=== PATIENT | female | born 1985 | race Caucasian/White ===

== ENCOUNTER → 2016-10-20 | Outpatient (CLI) | payer OTHER ==
[~2016-10-20] MED LIST: BCPILLS PO; BUPR100T8 PO; CERT200K SC; HYOS1TAB PO; MESA10002 PR
--- NOTE | 2016-10-20 13:40 | DIAGNOSTIC IMAGING REPORT ---
CHEST 2 VIEWS ROUTINE HISTORY: Cough. COMPARISON: Chest 02/13/2015. FINDINGS: The lungs are clear. Cardiac silhouette is normal in size. No pleural effusions. No pneumothorax. IMPRESSION: No acute process. Electronically signed by: Vishal Campo M.D. 10/20/2016 1:38 PM Dictated Date/Time: 10/20/2016 1:37 PM
== END | disposition home or self-care (01) ==
LOC: C.RAD 13:11
PROVIDERS: ATTEND Family Medicine
DX: R05 Cough (principal)

== ENCOUNTER → 2017-05-12 | Outpatient (CLI) | payer OTHER | END | disposition home or self-care (01) | LOC: C.PAPS 13:59 | PROVIDERS: ATTEND Physician Assistant | DX: Z01.419 Encounter for gynecological examination (general) (routine) without abnormal findings (principal) ==

== ENCOUNTER 2019-05-09 08:18 | Inpatient (IN) ==
[2019-05-09] MEDS ORDERED: HYDROmorphone INJ 0.5 MG/0.5 ML SYR IV STA ×2 (09:23→11:54)
[2019-05-09] MEDS ORDERED: ONDANSETRON INJ 2 MG/ML 2 ML VIAL IV STA (09:23)
[2019-05-09] MEDS ORDERED: methylPREDNISolone 125 MG/2 ML VIAL IV STA (09:23)
[2019-05-09] MEDS ORDERED: SODIUM CHLORIDE 0.9% 1000ML 1,000 ML IV SCH (09:30)
[2019-05-09 09:52] LABS: Appearance Urine Cloudy (Clear); Bacteria Urine Automated 2+ (Negative); Bilirubin Urine Negative (Negative); Blood Urine 2+ (Negative); Color Urine Dark Yellow; Epithelial Cell Urine Auto >30 /lpf (0-5); Glucose Urine UA Negative (Negative); Ketones Urine Trace (Negative); Leukocyte Esterase Urine Negative (Negative); Nitrite Urine Negative (Negative); Protein Urine Trace (Negative); Specific Gravity Urine 1.024 (1.000-1.030); Urobilinogen Urine Negative (Negative); pH Urine 6.5 (4.5-7.5)
[2019-05-09 09:56] LABS: Basophils # (auto) 0.03 K/uL (0-0.2); Basophils % (auto) 0.2 %; Eosinophils # (auto) 0.11 K/uL (0-0.5); Eosinophils % (auto) 0.8 %; Hematocrit (blood only) 36.1 % (37-47); Hemoglobin 11.9 g/dL (12.0-16.0); Immature Granulocytes # (auto) 0.17 K/uL (0.00-0.02); Immature Granulocytes % (auto) 1.3 %; Lymphocytes # (auto) 2.41 K/uL (1.2-3.4); Lymphocytes % (auto) 18.1 %; Mean Corpuscular Hemoglobin 29.2 pg (25-34); Mean Corpuscular Volume 88.5 fL (80-100); Mean Platelet Volume 9.3 fL (7.4-10.4); Monocytes # (auto) 1.71 K/uL (0.11-0.59); Monocytes % (auto) 12.8 %; Neutrophils # (auto) 8.88 K/uL (1.4-6.5); Neutrophils % (auto) 66.8 %; Platelet Count 333 K/uL (130-400); RDW Coefficient of Variation 13.6 % (11.5-14.5); Red Blood Count 4.08 M/uL (4.2-5.4); White Blood Count 13.31 K/uL (4.8-10.8)
[2019-05-09 10:01] LABS: Mucus Urine Present (None Prsent)
[2019-05-09 10:12] LABS: Albumin Level 2.7 gm/dl (3.4-5.0); BUN Creatinine Ratio 9.4 (10-20); Calcium 8.3 mg/dl (8.5-10.1); Creatinine Clr Calc Pharmacy 108.5 ml/min; Est GFR (African American) 117.6; Est GFR (Non-African American) 101.4; Potassium 3.2 mmol/L (3.5-5.1)
[2019-05-09 10:15] LABS: Albumin Globulin Ratio 0.7 (0.9-2); Bilirubin,Total 0.4 mg/dl (0.2-1); Globulin 3.9 gm/dl (2.5-4.0); Total Protein 6.6 gm/dl (6.4-8.2)
--- NOTE | 2019-05-09 11:01 | Emergency Department Note ---
ED Visit Note This patient was seen in concert with Dr. Valenzuela and we discussed and agreed upon the history, physical, assessment and plan. See attending's note for details. . Resident Activity Tracking Resident Involvement: Resident Care Provided Care Provided: Adult ED
[2019-05-09] MEDS ORDERED: POTASSIUM CHLORIDE 20 MEQ/15 ML UDC PO STA (11:13)
[2019-05-09] MEDS ORDERED: SODIUM CHLORIDE 0.9% 1000ML 1,000 ML IV ONE (12:30)
--- NOTE | 2019-05-09 14:32 | Emergency Department Note ---
Entered by Paco Chavez acting as a scribe for History of Present Illness General Chief complaint: Diarrhea Stated complaint: CROHN'S FLARE Source: patient History of Present Illness Provider complaint: Abdominal pain Onset (ago): day(s) (Several days) Location: abdomen Severity: similar to prior episodes Pain Consistency: + intermittent Maximum Pain Intensity: 8 Current Pain Intensity: 8 Quality: + other (Crampy) Relieved By: + none Exacerbated By: + none Associated symptoms: + denies other symptoms (Urinary symptoms) and + other (Hematochezia, diarrhea); no fever/chills and no nausea/vomiting The patient is a 34 year old female who presents to the Emergency Room with complaints of intermittent, crampy, generalized abdominal pain that has been ongoing for the past several days. The patient rates the pain as an 8/10 and notes nothing makes it better or worse. The patient has a history of Crohn's dis ease and states this feels similar to her past flare ups. The patient adds that for the past couple of days she has had bloody diarrhea, having about 6-8 bowel movements per day. The patient follows with Dr. Tabor for her Crohn's and she saw him last week for enemas but that did not help her symptoms. The patient states she saw him again yesterday and received prednisone but was told it may be too late and her flare might have already started. She currently takes Stelara for her Crohn's disease. The patient denies any nausea, vomiting, fevers, or chills. She also mentioned that in October she had an upper and lower endoscopies done that showed she was in remission. Home Medications Home Medications Medication Instructions Recorded Confirmed Type lorazepam 1 mg tablet 1 mg PO HS PRN #30 tab 03/22/19 05/09/19 History ustekinumab 90 mg/mL subcutaneous 0 mg SUBCUT .q 8 weeks ml 03/22/19 05/09/19 History syringe dicyclomine 10 mg PO TID PRN 05/09/19 05/09/19 History hydrocortisone-pramoxine 1 applic [place] Q12H 05/09/19 05/09/19 History [Proctofoam HC] levonorgestrel-ethinyl estrad 1 tab PO DAILY 05/09/19 05/09/19 History [Ruby (28)] prednisone 40 mg PO DAILY 05/09/19 05/09/19 History Allergies Allergy/AdvReac Type Severity Reaction Status Date / Time No Known Allergies Allergy Mild Verified 05/09/19 10:34 Past Med/Surg History Medical History Crohns disease (Chronic) IBD (inflammatory bowel disease) (Chronic) Celiac disease Surgical History History of colonoscopy (Chronic) Family History Grandfather (Paternal) Coronary heart disease Social History Preferred Language: Mohawk Communication Ability: Effective Beliefs That Will Affect Care: None Current Living Situation: Significant Other Other Information That Helps Us Care for You: No Feels Safe at Home: Yes Safety Concerns: Feels Safe At This Time Smoking Status: Never smoker Hx Alcohol Use: Yes Alcohol Intake Frequency: Rarely Hx Substance Use: No Review of Systems See HPI for pertinent positives & negatives. and A total of 10 systems reviewed and were otherwise negative Physical Exam Vital Signs Vital Signs - 24 hr 05/09/19 08:27 05/09/19 09:26 05/09/19 10:56 Temperature 37.1 C Temperature Source Oral Sepsis Recent Fever Within 48 Hours No Sepsis New/Unexplained Change in Mental Status No Sepsis Action Taken by Nursing No Action Required Pulse Rate 109 H 99 H Pulse Rate [Right Finger] 94 H Pulse Rhythm Regular Pulse Strength Normal Respiratory Rate 20 20 12 Respiratory Effort / Characteristics Non-Labored Spontaneous Non-Labored Respiratory Depth Normal Normal Respiratory Pattern Regular Blood Pressure 119/77 Blood Pressure [Right Arm] 118/79 Blood Pressure Mean 91 Blood Pressure Mean [Right Arm] 92 Blood Pressure Position Sitting Pulse Oximetry 97 98 98 Oxygen Delivery Method Room Air Room Air Room Air 05/09/19 12:02 05/09/19 13:41 05/09/19 13:45 Temperature Temperature Source Sepsis Recent Fever Within 48 Hours Sepsis New/Unexplained Change in Mental Status Sepsis Action Taken by Nursing Pulse Rate Pulse Rate [Right Finger] 97 H 94 H Pulse Rhythm Pulse Strength Respiratory Rate 20 20 Respiratory Effort / Characteristics Non-Labored Non-Labored Respiratory Depth Normal Normal Respiratory Pattern Blood Pressure Blood Pressure [Right Arm] 111/75 133/77 Blood Pressure Mean Blood Pressure Mean [Right Arm] 87 95 Blood Pressure Position Pulse Oximetry 97 98 Oxygen Delivery Method Room Air Room Air Vital signs reviewed. General: Well-appearing 34 year old female, in no significant distress. HEENT: No scleral icterus, PERRLA, neck supple. Atraumatic. Cardiovascular: Regular rate and rhythm, no extra sounds. Pulmonary: Clear to auscultation bilaterally, normal work of breathing. Abdomen: Soft, minimal diffuse tenderness with no rebounding or guarding, nondistended, positive bowel sounds. Musculoskeletal: Atraumatic, no peripheral edema. Neurologic: Patient awake alert and oriented x 3 Skin: Warm, dry, no rash Course 0903: Past medical records reviewed. The patient was evaluated in room A11B by the resident Chey Christianson, and a complete history and physical examination were performed. I then performed my own assessment. 1140: I reevaluated the patient and her condition has not changed. 1232: I spoke to Felix MATHIS about the patient's case. She recommends having the patient stay in the hospital. 1318: I spoke to Gela Meehan PAC under Dr. Dr. Javy Cannon about the patient's case. They are going to accept the patient for further evaluation. Consultations Consultation #1: I spoke to Felix MATHIS about the patient's case. She recommends having the patient stay in the hospital. Time: 12:32 Consultation #2: I spoke to Gela Meehan PAC under Dr. Dr. Javy Cannon about the patient's case. They are going to accept the patient for further evaluation. Time: 13:18 Administered Medications Hydromorphone HCl (Dilaudid) 0.5 mg IV Q3H PRN PRN Reason: Pain Stop: 05/23/19 21:26 Last Admin: 05/10/19 20:07 Dose: 0.5 mg Documented by: [id number] Admin: 05/10/19 14:34 Dose: 0.5 mg Documented by: [id number] Admin: 05/10/19 00:35 Dose: 0.5 mg Documented by: [id number] Admin: 05/09/19 21:35 Dose: 0.5 mg Documented by: [id number] Methylprednisolone 20 mg/ (Syringe) 0.32 mls @ 1.5 mls/min IV Q8H DUANE Stop: 06/08/19 15:59 Last Admin: 05/10/19 15:48 Dose: 1.5 mls/min Documented by: [id number] Admin: 05/10/19 08:13 Dose: 1.5 mls/min Documented by: [id number] Admin: 05/09/19 23:45 Dose: 1.5 mls/min Documented by: [id number] Admin: 05/09/19 16:24 Dose: 1.5 mls/min Documented by: [id number] Lillow: Non- Formulary Patient's Own Med 1 ea PO DAILY@2100 [facility] Stop: 06/08/19 20:59 Last Admin: 05/10/19 20:08 Dose: 1 ea Documented by: [id number] Admin: 05/09/19 21:26 Dose: 1 ea Documented by: [id number] Discontinued Medications Hydromorphone HCl (Dilaudid) 0.5 mg IV NOW STA Stop: 05/09/19 09:24 Last Admin: 05/09/19 09:41 Dose: 0.5 mg Documented by: [id number] Hydromorphone HCl (Dilaudid) 0.5 mg IV NOW STA Stop: 05/09/19 11:55 Last Admin: 05/09/19 11:58 Dose: 0.5 mg Documented by: [id number] Sodium Chloride (Nss 1000ml) 1,000 mls @ 999 mls/hr IV .Q1H1M DUANE Stop: 05/09/19 10:30 Last Infusion: 05/09/19 10:55 Dose: 0 mls/hr Documented by: [id number] Admin: 05/09/19 09:40 Dose: 999 mls/hr Documented by: [id number] Sodium Chloride (Nss 1000ml) 1,000 mls @ 999 mls/hr IV .Q1H1M ONE Stop: 05/09/19 13:30 Last Infusion: 05/09/19 14:53 Dose: 0 mls/hr Documented by: [id number] Admin: 05/09/19 13:40 Dose: 999 mls/hr Documented by: [id number] Potassium Chloride/Sodium Chloride (Normal Saline W/20 Meq Kcl) 20 meq in 1,000 mls @ 125 mls/hr IV .Q8H DUANE Stop: 05/10/19 15:35 Last Infusion: 05/10/19 16:15 Dose: 0 mls/hr Documented by: [id number] Admin: 05/10/19 08:39 Dose: 125 mls/hr Documented by: [id number] Infusion: 05/10/19 08:35 Dose: 125 mls/hr Documented by: [id number] Admin: 05/10/19 00:35 Dose: 125 mls/hr Documented by: [id number] Infusion: 05/10/19 00:22 Dose: 125 mls/hr Documented by: [id number] Infusion: 05/09/19 22:06 Dose: 125 mls/hr Documented by: [id number] Admin: 05/09/19 16:22 Dose: 125 mls/hr Documented by: [id number] Methylprednisolone (Solumedrol) 125 mg IV NOW STA Stop: 05/09/19 09:24 Last Admin: 05/09/19 09:40 Dose: 125 mg Documented by: [id number] Ondansetron HCl (Zofran) 4 mg IV NOW STA Stop: 05/09/19 09:24 Last Admin: 05/09/19 09:40 Dose: 4 mg Documented by: [id number] Potassium Chloride (Brooklynn Ciel Elix) 40 meq PO NOW STA Stop: 05/09/19 11:14 Last Admin: 05/09/19 11:43 Dose: 40 meq Documented by: [id number] Medical Decision Making Differential Diagnosis Differential: Viral, Bacterial, Parasitic, Iatrogenic, C-Diff, Malabsorption, Irritable Bowel Disease, IBS, Ischemic Bowel, amongst other pathologies entertained. Medical Records Attestation: I reviewed the patient's medical records. Home Medications Current Medication List: was personally reviewed by me Laboratory Data Attestation: I reviewed the patient's lab results. Result diagrams: 05/10/19 06:32 05/10/19 06:32 Lab Results 05/09/19 05/09/19 05/09/19 Range/Units 09:33 09:45 09:45 WBC 13.31 H (4.8-10.8) K/uL RBC 4.08 L (4.2-5.4) M/uL Hgb 11.9 L (12.0-16.0) g/dL Hct 36.1 L (37-47) % MCV 88.5 (80-100) fL MCH 29.2 (25-34) pg MCHC 33.0 (32-36) g/dL RDW Std Deviation 44.0 (36.4-46.3) fL RDW Coeff of Elie 13.6 (11.5-14.5) % Plt Count 333 (130-400) K/uL MPV 9.3 (7.4-10.4) fL Immature Gran % (Auto) 1.3 % Neut % (Auto) 66.8 % Lymph % (Auto) 18.1 % Pettis % (Auto) 12.8 % Eos % (Auto) 0.8 % Baso % (Auto) 0.2 % Immature Gran # (Auto) 0.17 H (0.00-0.02) K/uL Neut # (Auto) 8.88 H (1.4-6.5) K/uL Lymph # (Auto) 2.41 (1.2-3.4) K/uL Pettis # (Auto) 1.71 H (0.11-0.59) K/uL Eos # (Auto) 0.11 (0-0.5) K/uL Baso # (Auto) 0.03 (0-0.2) K/uL Sodium 140 (136-145) mmol/L Potassium 3.2 L (3.5-5.1) mmol/L Chloride 106 (98-107) mmol/L Carbon Dioxide 28 (21-32) mmol/L Anion Gap 6.0 (3-11) BUN 7 (7-18) mg/dl Creatinine 0.77 (0.6-1.2) mg/dl Est Cr Clr Drug Dosing 108.5 ml/min Est GFR ( Amer) 117.6 Est GFR (Non-Af Amer) 101.4 BUN/Creatinine Ratio 9.4 L (10-20) Glucose 81 (70-99) mg/dl Lactate (0.4-2.0) mmol/L Calcium 8.3 L (8.5-10.1) mg/dl Magnesium (1.8-2.4) mg/dl Total Bilirubin 0.4 (0.2-1) mg/dl AST 5 L (15-37) U/L ALT 16 (12-78) U/L Alkaline Phosphatase 65 (45-117) U/L Total Protein 6.6 (6.4-8.2) gm/dl Albumin 2.7 L (3.4-5.0) gm/dl Globulin 3.9 (2.5-4.0) gm/dl Albumin/Globulin Ratio 0.7 L (0.9-2) Lipase 54 L (73-393) U/L Urine Color Dark Yellow Urine Appearance Cloudy A (Clear) Urine pH 6.5 (4.5-7.5) Ur Specific [place] 1.024 (1.000-1.030) Urine Protein Trace H (Negative) Urine Glucose (UA) Negative (Negative) Urine Ketones Trace H (Negative) Urine Blood 2+ H (Negative) Urine Nitrite Negative (Negative) Urine Bilirubin Negative (Negative) Urine Urobilinogen Negative (Negative) Ur Leukocyte Esterase Negative (Negative) Urine WBC (Auto) 1-5 (0-5) /hpf Urine RBC (Auto) 10-30 H (0-4) /hpf U Hyaline Cast (Auto) 1-5 (0-5) /lpf U Epithel Cells (Auto) >30 H (0-5) /lpf Urine Bacteria (Auto) 2+ H (Negative) Ur Renal Epithelial Cell Not Reportable Urine Mucus Present A (None Prsent) 05/09/19 05/09/19 Range/Units 09:45 09:45 WBC (4.8-10.8) K/uL RBC (4.2-5.4) M/uL Hgb (12.0-16.0) g/dL Hct (37-47) % MCV (80-100) fL MCH (25-34) pg MCHC (32-36) g/dL RDW Std Deviation (36.4-46.3) fL RDW Coeff of Elie (11.5-14.5) % Plt Count (130-400) K/uL MPV (7.4-10.4) fL Immature Gran % (Auto) % Neut % (Auto) % Lymph % (Auto) % Pettis % (Auto) % Eos % (Auto) % Baso % (Auto) % Immature Gran # (Auto) (0.00-0.02) K/uL Neut # (Auto) (1.4-6.5) K/uL Lymph # (Auto) (1.2-3.4) K/uL Pettis # (Auto) (0.11-0.59) K/uL Eos # (Auto) (0-0.5) K/uL Baso # (Auto) (0-0.2) K/uL Sodium (136-145) mmol/L Potassium (3.5-5.1) mmol/L Chloride (98-107) mmol/L Carbon Dioxide (21-32) mmol/L Anion Gap (3-11) BUN (7-18) mg/dl Creatinine (0.6-1.2) mg/dl Est Cr Clr Drug Dosing ml/min Est GFR ( Amer) Est GFR (Non-Af Amer) BUN/Creatinine Ratio (10-20) Glucose (70-99) mg/dl Lactate 0.8 (0.4-2.0) mmol/L Calcium (8.5-10.1) mg/dl Magnesium 2.0 (1.8-2.4) mg/dl Total Bilirubin (0.2-1) mg/dl AST (15-37) U/L ALT (12-78) U/L Alkaline Phosphatase (45-117) U/L Total Protein (6.4-8.2) gm/dl Albumin (3.4-5.0) gm/dl Globulin (2.5-4.0) gm/dl Albumin/Globulin Ratio (0.9-2) Lipase (73-393) U/L Urine Color Urine Appearance (Clear) Urine pH (4.5-7.5) Ur Specific [place] (1.000-1.030) Urine Protein (Negative) Urine Glucose (UA) (Negative) Urine Ketones (Negative) Urine Blood (Negative) Urine Nitrite (Negative) Urine Bilirubin (Negative) Urine Urobilinogen (Negative) Ur Leukocyte Esterase (Negative) Urine WBC (Auto) (0-5) /hpf Urine RBC (Auto) (0-4) /hpf U Hyaline Cast (Auto) (0-5) /lpf U Epithel Cells (Auto) (0-5) /lpf Urine Bacteria (Auto) (Negative) Ur Renal Epithelial Cell Urine Mucus (None Prsent) Blood Pressure Blood Pressure Findings: Normal blood pressure MDM Narrative This patient was evaluated and appeared to be in no significant distress. IV access was obtained and laboratory work was drawn. Patient was placed on the director of cardiac rehabilitation and found to be in a normal sinus rhythm. Vital signs have remained stable with the exception of a mild tachycardia. Patient was hydrated with 1 L of normal saline solution but heart rate did remain somewhat elevated. Laboratory work reveals a WBC of 15.8, likely somewhat secondary to the prednisone therapy. Hemoglobin is 10.4. Patient did receive 125 mg of IV Solu- Medrol. As the abdomen is soft, no further imaging was felt to be necessary at this time. She was given p.o. potassium for repletion. I did speak with [facility], DELFINA Cardoso. Further management by the hospitalist service was recommended. Patient was updated to the findings and plan. She agrees. Impression & Plan Crohns disease Discharge Plan Visit Data *Final* Discharge Date/Time: 05/09/19 15:08 Chief Complaint: Diarrhea Stated Complaint: CROHN'S FLARE ED Provider: Dorothy Valenzuela Discharge Problem: Crohns disease Patient Disposition: Admitted As Inpatient Discharge Instructions Interventions: ED Discharge Assessment Last Done: 05/09/19 15:08 Discharge Problem: Crohns disease Qualifiers: Gastrointestinal tract location: unspecified location Digestive disease complication type: unspecified complication Qualified Code(s): K50.919 - Crohn's disease, unspecified, with unspecified complications The scribe's documentation has been prepared under my direction and personally reviewed by me in its entirety. I confirm that the note above accurately reflects all work, treatment, procedures, and medical decision making performed by me.
--- NOTE | 2019-05-09 14:35 | History & Physical Report ---
Date of Service May 09, 2019 Assessment & Plan (1) IBD (inflammatory bowel disease): (2) Bloody diarrhea: Pt with hx IBD presented with 2 weeks of abdominal cramping and increased loose stools progressing to grossly bloody stools. Trial of hydrocortisone enemas and Proctocort last week without relief. History cephalexin use x10 days in March for rash. Denies fever, chills, vomiting. In ER afebrile, P: 109 down to 97, RR: 20, BP: 119/77, 97% on room air. WBC: 13, H/H: 11.9/36. Lactate: 0.8. UA: 10-30 RBC, 2+ bacteria, >30 epithelial IBD flare versus infectious diarrhea -In ER given 2L NSS, 125mg Solumedrol IV, Zofran 4mg IV, Dilaudid total 1mg IV -C. difficile, stool cultures, Giardia pending -UA culture pending -IVF -Clear liquid diet -Solu-Medrol 20 mg 3 times daily per GI recommendations -Antiemetics prn -Continue Bentyl as needed cramping -No current abdominal pain and abdomen soft on exam, will hold on imaging at this time -Hold Stelara (patient receives to 8 weeks; scheduled dose was to be 03/23/2019 however was withheld secondary to rash, last dose 04/06/2019) -GI consult -CBC, BMP in a.m. (3) Hypokalemia: K: 3.2 Probable secondary to diarrhea and decreased oral intake -In ER given 40meq KCl po -NSS + KCl -Monitor electrolytes DVT Prophylaxis -Low risk, Ambulate Follows with Ashlee Suggs PA-C for routine care Pt was seen and care coordinated with Dr Palafox. See addendum History of Present Illness Chief Complaint: Bloody diarrhea Primary Care Provider: Ashlee Suggs PA-C Pt is 34 y/o F with PMH IBD presented to ER with c/o bloody diarrhea. Pt 2 weeks ago started with some mild abdominal cramping and noticed started 2-3 loose stools a day. She reports on 04/29/19 started hydrocortisone enemas and thought was getting better with decreased amount of BM's. Stopped enemas as felt like was getting better than had increased amount of loose stools. Tried Proctofoam 4 days ago but felt like was not helping as did not feel like applicator was appropriate and discontinued that 2-3 days ago. Last week started with red bloody diarrhea and past several days with diffuse red blood. Has been having approx 6-9 episodes bloody BM's a day. Was started on prednisone 40mg daily, took first dose yesterday on 05/08/19. Taking Bentyl with some relief of abdominal cramping. Decreased oral intake past several days. She reports in March had rash to torso that was evaluated by dermatology and determined to be staph from wound culture and was treated with cephalexin for 10 days. Pt reports rash resolved. States that her Stelera was delayed secondary to rash (receives every 8 weeks). She was originally scheduled to receive Stelera on 03/23/19, however had dose on 04/06/19. Denies any other recent changes in medications. Pt thinks her last IBD flare was in 2014 and reports hasn't needed oral steroids since then. Colonoscopy in 12/2018: No evidence of active colitis. Changes c/w chronic colitis. LMP 05/03/19-/05/07/19. Denies fever/chills, diaphoresis, vomiting, MARCIAL, dizziness, syncope, vision changes, neck pain, CP, SOB, orthopnea, palpitations, cough, sore throat, choking, otalgia, rhinorrhea, paresthesias, weakness, extremity edema, ohter rashes, dysuria, hematuria, urinary frequency. Denies recent ETOH use. Denies recent travel, ill contacts. Allergies Allergy/AdvReac Type Severity Reaction Status Date / Time No Known Allergies Allergy Mild Verified 05/09/19 10:34 Home Medications Home Medications Medication Instructions Recorded Confirmed Type lorazepam 1 mg tablet 1 mg PO HS PRN #30 tab 03/22/19 05/09/19 History ustekinumab 90 mg/mL subcutaneous 0 mg SUBCUT .q 8 weeks ml 03/22/19 05/09/19 History syringe dicyclomine 10 mg PO TID PRN 05/09/19 05/09/19 History hydrocortisone-pramoxine 1 applic [place] Q12H 05/09/19 05/09/19 History [Proctofoam HC] levonorgestrel-ethinyl estrad 1 tab PO DAILY 05/09/19 05/09/19 History [Ruby (28)] prednisone 40 mg PO DAILY 05/09/19 05/09/19 History Past Med/Surg History Medical History Crohns disease (Chronic) IBD (inflammatory bowel disease) (Chronic) Celiac disease Surgical History History of colonoscopy (Chronic) Family History Grandfather (Paternal) Coronary heart disease Social History Preferred Language: Honduran Communication Ability: Effective Beliefs That Will Affect Care: None Current Living Situation: Significant Other Other Information That Helps Us Care for You: No Feels Safe at Home: Yes Safety Concerns: Feels Safe At This Time Smoking Status: Never smoker Hx Alcohol Use: Yes Alcohol Intake Frequency: Rarely Hx Substance Use: No Review of Systems Review of Systems: All systems reviewed & are unremarkable except as noted in HPI & below Physical Exam Physical Exam: General: no distress, WDWN Head: normocephalic, atraumatic Eyes: PERRL, EOM's intact, conjunctiva non-injected, anicteric ENT: normal inspection external ears, nose, mucous membranes dry Neck: supple, trachea midline Lungs: clear, no respiratory distress, no wheezing/rhonchi/rales CV: RRR, no murmur, no pretibial edema Abd: normal BS, soft, non-tender to palpation Ext: no cyanosis, no calf tenderness Neuro: A&O x 3, no focal deficits noted, normal affect Skin: warm, dry Results & Data Vital Signs (Past 12 Hours) Vital Signs Temp Pulse Pulse Resp BP BP Pulse Ox 05/09/19 13:41 94 H 20 133/77 98 05/09/19 12:02 97 H 20 111/75 97 05/09/19 10:56 94 H 12 118/79 98 05/09/19 09:26 99 H 20 98 05/09/19 08:27 37.1 C 109 H 20 119/77 97 Laboratory Results Short CBC 05/09/19 Range/Units 09:45 WBC 13.31 H (4.8-10.8) K/uL Hgb 11.9 L (12.0-16.0) g/dL Hct 36.1 L (37-47) % Plt Count 333 (130-400) K/uL BMP 05/09/19 09:45 Sodium 140 Potassium 3.2 L Chloride 106 Carbon Dioxide 28 BUN 7 Creatinine 0.77 Glucose 81 Calcium 8.3 L Liver Function 05/09/19 Range/Units 09:45 Total Bilirubin 0.4 (0.2-1) mg/dl AST 5 L (15-37) U/L ALT 16 (12-78) U/L Alkaline Phosphatase 65 (45-117) U/L Albumin 2.7 L (3.4-5.0) gm/dl Urine 05/09/19 Range/Units 09:33 Urine Color Dark Yellow Urine Appearance Cloudy A (Clear) Urine pH 6.5 (4.5-7.5) Ur Specific [place] 1.024 (1.000-1.030) Urine Protein Trace H (Negative) Urine Glucose (UA) Negative (Negative) Supervising Physician Co-Signing Physician Notes I have seen and examined the patient and have discussed the case with the provider above. I agree with the assessment and plan as stated. Unremarkable physical exam with nontender abdomen. Hemodynamically stable. Last BM reported to be 12 hours ago. H/H stable since initial draw in ER. Moderate to severe Chron's disease requiring steroids. Started Solumedrol. Hold Stelara. Consult GI for further recs. Liquid diet with advancement after seen by GI in am. The patient is already feeling better, which may reflect the effect of the prednisone yesterday that she started while at home or the solumedrol she was given in the last several hours vs pain medication. DO Javy
[2019-05-09] MEDS ORDERED: ACETAMINOPHEN 325 MG TAB PO PRN (15:36)
[2019-05-09] MEDS ORDERED: ONDANSETRON INJ 2 MG/ML 2 ML VIAL IV PRN (15:36)
[2019-05-09] MEDS ORDERED: LORazepam 1 MG TAB PO PRN (15:36)
[2019-05-09] MEDS ORDERED: MoRPHine SULFATE 4 MG/ML 1 ML CARP\\VIAL IV PRN (15:36)
[2019-05-09] MEDS: NSS + 20MEQ KCL 20 MEQ/1,000 ML BAG IV SCH (16:22)
[2019-05-09] MEDS: methylPREDNISolone 20 MG in SYRINGE 0 ML IV SCH ×2 (16:24→23:45)
[2019-05-09 19:25] LABS: Hematocrit (blood only) 36.4 % (37-47); Hemoglobin 11.8 g/dL (12.0-16.0)
[2019-05-09 21:20] LABS: Pregnancy Test, Urine Negative (Negative)
[2019-05-09] MEDS: [UNRECOGNIZED DRUG - OTHER] PO SCH (21:26)
[2019-05-09] MEDS: HYDROmorphone INJ 0.5 MG/0.5 ML SYR IV PRN (21:35)
[2019-05-10] MEDS: HYDROmorphone INJ 0.5 MG/0.5 ML SYR IV PRN ×3 (00:35→20:07)
[2019-05-10] MEDS: NSS + 20MEQ KCL 20 MEQ/1,000 ML BAG IV SCH ×2 (00:35→08:39)
[2019-05-10 06:55] LABS: Basophils # (auto) 0.02 K/uL (0-0.2); Basophils % (auto) 0.1 %; Hematocrit (blood only) 32.2 % (37-47); Hemoglobin 10.4 g/dL (12.0-16.0); Immature Granulocytes # (auto) 0.13 K/uL (0.00-0.02); Immature Granulocytes % (auto) 0.8 %; Lymphocytes # (auto) 1.57 K/uL (1.2-3.4); Lymphocytes % (auto) 9.9 %; Mean Corpuscular Hemoglobin 28.7 pg (25-34); Mean Corpuscular Hgb Conc 32.3 g/dL (32-36); Mean Platelet Volume 9.1 fL (7.4-10.4); Monocytes # (auto) 1.66 K/uL (0.11-0.59); Monocytes % (auto) 10.5 %; Neutrophils # (auto) 12.42 K/uL (1.4-6.5); Neutrophils % (auto) 78.7 %; Platelet Count 327 K/uL (130-400); RDW Coefficient of Variation 13.6 % (11.5-14.5); RDW Standard Deviation 44.4 fL (36.4-46.3); Red Blood Count 3.62 M/uL (4.2-5.4)
[2019-05-10 07:34] LABS: BUN Creatinine Ratio 9.2 (10-20); Calcium 8.2 mg/dl (8.5-10.1); Creatinine Clr Calc Pharmacy 126.6 ml/min; Est GFR (African American) 134.5; Est GFR (Non-African American) 116.1; Magnesium 1.9 mg/dl (1.8-2.4); Potassium 4.1 mmol/L (3.5-5.1)
[2019-05-10] MEDS: methylPREDNISolone 20 MG in SYRINGE 0 ML IV SCH ×3 (08:13→23:46)
--- NOTE | 2019-05-10 10:44 | Gastrointestinal Consultation ---
Date of Consultation May 10, 2019 Assessment & Plan (1) Crohns disease: 34 year old female with celiac, Crohn's on Stelara who presents for failed outpatient management of suspected IBD flare w/ up to 10 bloody bowel movements daily. She was started on PO prednisone Wednesday after negative stool for c.diff. On arrival to the ED repeat stool studies were sent and negative to date. She was started on IV methylpred and a clear liquid diet and notes improvement of her symptoms She is afebrile, non-toxic on exam w/ stable vital signs. Her last BM was last evening. - Would continue gluten free clear liquid diet today - Consider advancement to gluten free low residue for dinner pending her symptoms - Would continue IV methylpred 20 mg TID today - Will need transition to PO steroid taper at discharge - Prednisone 40 mg daily x 2 weeks decreasing by 5 mg per week - Can trial Bentyl 10 mg three times daily if needed - Antiemetics PRN - Would limit narcotic analgesia Thank you for allowing us to participate in the care of this patient. Please call with any acute changes, questions or concerns. Please see addendum below with additional recommendation from my supervising physician. Present on Admission?: Yes (2) Bloody diarrhea: Present on Admission?: Yes Supervising Physician Co-Signing Physician Notes Late entry: Patient was seen and examined on 05/10 with DELFINA Forde whose note reflects our findings and plan. History of Present Illness Reason for Consultation: crohns Requesting Physician: Javy Attending Physician: Evon Palafox, History of Present Illness 34 year old female with history of Crohn's on Stelara, celiac disease on gluten free diet who is admitted through the ED for bloody diarrhea - GI asked to evaluate. She had been started on PO prednisone on Wednesday after she noted increased in frequency, blood in stools. Stool for c.diff was negative. On ad , stools were resubmitted c.diff negative, culture negative to date but pending. She was started on IV lfuids, IV steroids (methylpred 20 q8h) and a clear liquid diet. She notes today, she is feeling improved. Last BM was last evening. This AM passing gas but no stool. No abdominal pain. No nausea, vomiting. Tolerating liquids. c diff negative culture negative but pending EGD 2019: LA Grade A (one or more mucosal breaks less than 5 mm, not extending between tops of 2 mucosal folds) esophagitis with no bleeding was found. The entire examined stomach was normal. Biopsies were taken with a cold forceps for histology. Patchy mildly erythematous mucosa was found in the duodenal bulb.The exam of the duodenum was otherwise normal, without evidence of active celiac sprue. Biopsies taken throughout the duodenum. Colonoscopy 2019: No evidence of active colitis. Changes c/w chronic colitis Allergies Allergy/AdvReac Type Severity Reaction Status Date / Time No Known Allergies Allergy Mild Verified 05/09/19 10:34 Home Medications Home Medications Medication Instructions Recorded Confirmed Type lorazepam 1 mg tablet 1 mg PO HS PRN #30 tab 03/22/19 05/09/19 History ustekinumab 90 mg/mL subcutaneous 0 mg SUBCUT .q 8 weeks ml 03/22/19 05/09/19 History syringe dicyclomine 10 mg PO TID PRN 05/09/19 05/09/19 History hydrocortisone-pramoxine 1 applic FL Q12H 05/09/19 05/09/19 History [Proctofoam HC] levonorgestrel-ethinyl estrad 1 tab PO DAILY 05/09/19 05/09/19 History [Lillow (28)] prednisone 40 mg PO DAILY 05/09/19 05/09/19 History Patient History Medical History Crohns disease (Chronic) IBD (inflammatory bowel disease) (Chronic) Celiac disease Surgical History History of colonoscopy (Chronic) Family History Grandfather (Paternal) Coronary heart disease Social History Preferred Language: Turkish Communication Ability: Effective Beliefs That Will Affect Care: None Current Living Situation: Significant Other Other Information That Helps Us Care for You: No Feels Safe at Home: Yes Safety Concerns: Feels Safe At This Time Smoking Status: Never smoker Hx Alcohol Use: Yes Alcohol Intake Frequency: Rarely Hx Substance Use: No Review of Systems Constitutional: no fever, no chills and no fatigue Respiratory: no cough and no dyspnea Cardiovascular: no chest pain and no radiating jaw, neck or arm pain Gastrointestinal: + change in bowel habits, + change in stools, + diarrhea/loose stools, + constant urge to pass stools and + blood in stools; no abdominal pain, no bloating, no heartburn, no nausea, no coffee ground emesis, no hematemesis, no dysphagia, no cramping, no constipation, no fecal incontinence and no melena Physical Exam Constitutional: WD/WN, vitals as above well developed Neck: trachea midline Respiratory: normal respiratory effort, lungs clear to auscultation Cardiovascular: RRR, no murmur, no edema Gastrointestinal (Abdomen): normal bowel sounds, soft, nontender, no hepatosplenomegaly Skin: no rashes, warm and dry Results & Data Vital Signs (Past 12 Hours) Vital Signs Temp Pulse Resp BP Pulse Ox 05/10/19 07:10 37.0 C 80 18 115/75 97 05/09/19 22:52 36.9 C 81 16 112/72 98 (1) Crohns disease Digestive disease complication type: unspecified complication Gastrointestinal tract location: unspecified location Qualified Code(s): K50.919 - Crohn's disease, unspecified, with unspecified complications
--- NOTE | 2019-05-10 12:07 | Hospitalist Progress Note ---
Date of Service May 10, 2019 Assessment & Plan (1) Crohns disease: Moderate to severe active Crohn's disease with multiple episodes of liquid bloody stools over the past week. She is improving on steroids. Continue 20 mg IV every 8. Appreciate GI recommendations. Holding Stelara at this time. Continue supportive care. (2) Acute blood loss anemia: Secondary to GI bleeding. This is improving, she is hemodynamically stable. No indication for transfusion at this time. (3) DVT prophylaxis: DVT prophylaxis contraindicated in setting of blood loss anemia. SCDs/ambulation Full code Disposition-pending ability to tolerate solid food without pain and GI clearance. Evon Palafox DO [facility] Hospitalist Subjective 34-year-old female with moderate to severe active Crohn's disease. Since admission and Solu-Medrol she has been doing fairly well. She did well last night up until having clear liquids suddenly developed severe pain a couple hours later. She also continued to have bloody bowel movements but feels the blood is decreasing in amount. She has not yet had pain after having clear liquids for breakfast this morning. GI is seeing her and considering advanced later today. She denies any fevers or chills or other infectious symptoms. Review of Systems Review of Systems: All systems reviewed & are unremarkable except as noted in HPI & below Physical Exam Physical Exam: CONSTITUTIONAL: WNWD, vitals as above, generally well- appearing EYES: normal conjunctivae, no scleral icterus ENT: MMM RESPIRATORY: clear to auscultation bilaterally, no crackles, rales or wheezes, normal respiratory effort CARDIOVASCULAR: regular rate and rhythm, S1 and 2 heard without murmurs, gallops or rubs, no JVD, no peripheral edema GASTROINTESTINAL: normal bowel sounds, soft, nontender, nondistended MUSCULOSKELETAL: strength 5/5 throughout, head is normocephalic and atraumatic SKIN: warm and dry NEUROLOGIC: CN 2-12 grossly intact, no sensory deficit, normal cognition, normal speech, no gross focal deficits. PSYCHIATRIC: alert cooperative and oriented to person, place and time. Results & Data Vital Signs (Past 12 Hours) Vital Signs Temp Pulse Resp BP Pulse Ox 05/10/19 07:10 37.0 C 80 18 115/75 97 Laboratory Results Short CBC 05/09/19 05/10/19 Range/Units 19:09 06:32 WBC 15.80 H (4.8-10.8) K/uL Hgb 11.8 L 10.4 L (12.0-16.0) g/dL Hct 36.4 L 32.2 L (37-47) % Plt Count 327 (130-400) K/uL [facility] 05/10/19 06:32 Sodium 139 Potassium 4.1 D Chloride 109 H Carbon Dioxide 25 BUN 6 L Creatinine 0.66 Glucose 117 H Calcium 8.2 L Medications Administered Current Inpatient Medications Acetaminophen (Tylenol) 650 mg PO Q4H PRN PRN Reason: pain/fever Stop: 06/08/19 15:35 Dicyclomine HCl (Bentyl) 10 mg PO TID PRN PRN Reason: Abdominal Discomfort Stop: 06/08/19 15:35 Hydromorphone HCl (Dilaudid) 0.5 mg IV Q3H PRN PRN Reason: Pain Stop: 05/23/19 21:26 Last Admin: 05/10/19 00:35 Dose: 0.5 mg Documented by: Potassium Chloride/Sodium Chloride (Normal Saline W/20 Meq Kcl) 20 meq in 1,000 mls @ 125 mls/hr IV .Q8H DUANE Stop: 05/10/19 15:35 Last Admin: 05/10/19 08:39 Dose: 125 mls/hr Documented by: Methylprednisolone 20 mg/ (Syringe) 0.32 mls @ 1.5 mls/min IV Q8H DUANE Stop: 06/08/19 15:59 Last Admin: 05/10/19 08:13 Dose: 1.5 mls/min Documented by: Lorazepam (Ativan) 1 mg PO HS PRN PRN Reason: Anxiety Stop: 06/08/19 15:35 Lillow: Non- Formulary Patient's Own Med 1 ea PO DAILY@2100 DUANE Stop: 06/08/19 20:59 Last Admin: 05/09/19 21:26 Dose: 1 ea Documented by: Ondansetron HCl (Zofran) 4 mg IV Q6H PRN PRN Reason: Nausea Stop: 06/08/19 15:35 (1) Crohns disease Digestive disease complication type: unspecified complication Gastrointestinal tract location: unspecified location Qualified Code(s): K50.919 - Crohn's disease, unspecified, with unspecified complications
[2019-05-10] MEDS: [UNRECOGNIZED DRUG - OTHER] PO SCH (20:08)
[2019-05-11] MEDS: methylPREDNISolone 20 MG in SYRINGE 0 ML IV SCH ×4 (00:16→23:54)
[2019-05-11] MEDS: HYDROmorphone INJ 0.5 MG/0.5 ML SYR IV PRN ×4 (00:38→23:58)
[2019-05-11] MEDS: DICYCLOMINE HCL 10 MG CAP PO PRN (07:57)
--- NOTE | 2019-05-11 10:32 | Gastroenterology Progress Note ---
Date of Service May 11, 2019 Assessment & Plan (1) Crohns disease: 34 year old female with celiac, Crohn's Colitis on Stelara admitted for failed OP tx of a flare. Symptoms are slowly improving (smaller area of pain, less frequent BMs, though still loose/liquid bloody). S - Would continue gluten free soft diet. - Would continue IV methylpred 20 mg TID today - Will need transition to PO steroid taper at discharge - Prednisone 40 mg daily x 2 weeks decreasing by 5 mg per week - Continue Bentyl as it is helping. - Antiemetics PRN - Would limit narcotic analgesia (2) Bloody diarrhea: Supervising Physician Co-Signing Physician Notes Late entry: Patient was seen and examine don 05/11 with Jaimee/ DELFINA Warren whose note reflects our findings and plan. Subjective Ms. Martinez is a 34 yr old female with moderate to severe active Crohn's colitis followed by Dr. Tabor. Flare symptoms of abdominal pain and blood diarrhea. Failed OP oral steroids. Admitted 05/09. Since admission and Solu-Medrol: decreased frequency of BMs (6 on Wednesday, 4 yesterday 1 thus far today). Continues with bloody, loose BMs, this mornings consisting of mostly blood. Pain now only left sided, was upper and left sided on arrival. Tolerating a low residual, soft diet without increased post prandial pain. Still, though has severe abdominal cramping 2-3 times/day with need for IV analgesics. C-diff and GI path panel (-). Review of Systems Review of Systems: ROS: Gen: Mild, fatigue and generalized weakness. No fevers Eyes: No eye redness, or pain, no recent vision changes Resp: No SOB, no cough Cardio: No palpitations/irregular beats, no chest pain : Denies pain on urination Skin: No jaundice, itching or new rashes Gastrointestinal: + change in bowel habits, + change in stools, + diarrhea/loose stools, + constant urge to pass stools and + blood in stools; no abdominal pain, no bloating, no heartburn, no nausea, no coffee ground emesis, no hematemesis, no dysphagia, no cramping, no constipation, no fecal incontinence and no melena Physical Exam Constitutional: WD/WN, vitals as above Eyes: PERRL, conjunctivae normal, anicteric sclerae ENMT: Ears: no external ear abnormality Nose: no external nose abnormality Neck: trachea midline, no thyromegaly Respiratory: normal respiratory effort, lungs clear to auscultation Cardiovascular: RRR, no murmur, no edema Gastrointestinal (Abdomen): normal bowel sounds, soft, nontender, no hepatosplenomegaly (only very minimal tenderness in the left mid and lower areas) Skin: no rashes, warm and dry Neurologic: PERRL, EOMI, accommodation nl, no face palsy, no dysarthria moves all extremities Motor/Sensory: no tremor Psychiatric: A+Ox3, euthymic affect Lymphatic: no cervical or axillary lymphadenopathy Results & Data Vital Signs (Past 12 Hours) Vital Signs Temp Pulse Resp BP Pulse Ox 05/11/19 06:57 37.1 C 87 18 116/78 96 05/10/19 23:23 36.6 C 71 18 128/80 99 (1) Crohns disease Digestive disease complication type: unspecified complication Gastrointestinal tract location: unspecified location Qualified Code(s): K50.919 - Crohn's disease, unspecified, with unspecified complications
[2019-05-11] MEDS: ACETAMINOPHEN W/CODEINE #3 1 TAB PO PRN ×2 (13:06→17:54)
--- NOTE | 2019-05-11 13:22 | Hospitalist Progress Note ---
Date of Service May 11, 2019 Assessment & Plan (1) Crohns disease: Moderate to severe active Crohn's disease with multiple episodes of liquid bloody stools over the past week. She is improving on steroids. Continue 20 mg IV every 8hrs. ESR and CRP in am as well as CBC/BMP. Expect leukocytosis in setting of steroids. Appreciate GI recommendations. Holding Stelara at this time. Continue supportive care. (2) Acute blood loss anemia: Secondary to GI bleeding. This is improving, she is hemodynamically stable. No indication for transfusion at this time. CBC in am. (3) DVT prophylaxis: DVT prophylaxis contraindicated in setting of blood loss anemia. SCDs/ambulation Full code Disposition-pending ability to tolerate solid food without pain and GI clearance. Evon Palafox DO [facility] Hospitalist Subjective 34-year-old female with active severe Crohn's disease. Patient reports approximately 6-8 bowel movements yesterday with an improvement in the amount of liquid blood seen in her stool. She does still report some pain with eating and was requiring Dilaudid IV overnight. We discussed p.o. options for pain control today to use in lieu of IV in an effort to manage her with oral medications and get her home faster. Review of systems is otherwise negative. Review of Systems Review of Systems: All systems reviewed & are unremarkable except as noted in HPI & below Physical Exam Physical Exam: CONSTITUTIONAL: WNWD, vitals as above, generally well- appearing EYES: normal conjunctivae, no scleral icterus ENT: MMM RESPIRATORY: clear to auscultation bilaterally, no crackles, rales or wheezes, normal respiratory effort CARDIOVASCULAR: regular rate and rhythm, S1 and 2 heard without murmurs, gallops or rubs, no JVD, no peripheral edema GASTROINTESTINAL: normal bowel sounds, soft, nontender, nondistended MUSCULOSKELETAL: strength 5/5 throughout, head is normocephalic and atraumatic SKIN: warm and dry NEUROLOGIC: CN 2-12 grossly intact, no sensory deficit, normal cognition, normal speech, no gross focal deficits. PSYCHIATRIC: alert cooperative and oriented to person, place and time. Results & Data Vital Signs (Past 12 Hours) Vital Signs Temp Pulse Resp BP Pulse Ox 05/11/19 06:57 37.1 C 87 18 116/78 96 Medications Administered Current Inpatient Medications Acetaminophen (Tylenol) 650 mg PO Q4H PRN PRN Reason: pain/fever Stop: 06/08/19 15:35 Last Admin: 05/11/19 09:48 Dose: 650 mg Documented by: Acetaminophen/Codeine Phosphate (Tylenol W/Codeine #3) 1 tab PO Q4H PRN PRN Reason: Pain Stop: 06/10/19 10:13 Last Admin: 05/11/19 13:06 Dose: 1 tab Documented by: Dicyclomine HCl (Bentyl) 10 mg PO TID PRN PRN Reason: Abdominal Discomfort Stop: 06/08/19 15:35 Last Admin: 05/11/19 07:57 Dose: 10 mg Documented by: Hydromorphone HCl (Dilaudid) 0.5 mg IV Q3H PRN PRN Reason: Pain Stop: 05/23/19 21:26 Last Admin: 05/11/19 00:38 Dose: 0.5 mg Documented by: Methylprednisolone 20 mg/ (Syringe) 0.32 mls @ 1.5 mls/min IV Q8H DUANE Stop: 06/08/19 15:59 Last Admin: 05/11/19 08:18 Dose: 1.5 mls/min Documented by: Lorazepam (Ativan) 1 mg PO HS PRN PRN Reason: Anxiety Stop: 06/08/19 15:35 Lillow: Non- Formulary Patient's Own Med 1 ea PO DAILY@2100 [facility] Stop: 06/08/19 20:59 Last Admin: 05/10/19 20:08 Dose: 1 ea Documented by: Ondansetron HCl (Zofran) 4 mg IV Q6H PRN PRN Reason: Nausea Stop: 06/08/19 15:35 (1) Crohns disease Digestive disease complication type: unspecified complication Gastrointestinal tract location: unspecified location Qualified Code(s): K50.919 - Crohn's disease, unspecified, with unspecified complications
[2019-05-11] MEDS: [UNRECOGNIZED DRUG - OTHER] PO SCH (20:05)
[2019-05-12 07:39] LABS: Hematocrit (blood only) 37.4 % (37-47); Hemoglobin 12.2 g/dL (12.0-16.0); Mean Corpuscular Hemoglobin 29.1 pg (25-34); Mean Corpuscular Hgb Conc 32.6 g/dL (32-36); Mean Corpuscular Volume 89.3 fL (80-100); Mean Platelet Volume 9.1 fL (7.4-10.4); Nucleated RBC # (auto) 0.05 K/uL (0-0); Nucleated RBC % (auto) 0.3 %; Platelet Count 408 K/uL (130-400); RDW Coefficient of Variation 13.7 % (11.5-14.5); RDW Standard Deviation 44.6 fL (36.4-46.3); Red Blood Count 4.19 M/uL (4.2-5.4); White Blood Count 16.95 K/uL (4.8-10.8)
[2019-05-12] MEDS: methylPREDNISolone 20 MG in SYRINGE 0 ML IV SCH ×3 (07:43→19:19)
[2019-05-12] MEDS: DICYCLOMINE HCL 10 MG CAP PO PRN (07:43)
[2019-05-12 08:11] LABS: BUN Creatinine Ratio 15.3 (10-20); C Reactive Protein 6.54 mg/dl (0-0.29); Calcium 8.9 mg/dl (8.5-10.1); Creatinine Clr Calc Pharmacy 114.4 ml/min; Est GFR (African American) 125.4; Est GFR (Non-African American) 108.2; Potassium 4.1 mmol/L (3.5-5.1)
[2019-05-12 08:14] LABS: Basophils # (auto) 0.04 K/uL (0-0.2); Basophils % (auto) 0.2 %; Eosinophils # (auto) 0.01 K/uL (0-0.5); Eosinophils % (auto) 0.1 %; Immature Granulocytes # (auto) 0.41 K/uL (0.00-0.02); Immature Granulocytes % (auto) 2.4 %; Lymphocytes # (auto) 2.24 K/uL (1.2-3.4); Lymphocytes % (auto) 13.2 %; Monocytes # (auto) 2.26 K/uL (0.11-0.59); Monocytes % (auto) 13.3 %; Neutrophils # (auto) 11.99 K/uL (1.4-6.5); Neutrophils % (auto) 70.8 %; Toxic Granulation 1+
[2019-05-12] MEDS ORDERED: DICYCLOMINE HCL 10 MG CAP PO PRN (08:58)
[2019-05-12] MEDS: HYDROmorphone INJ 0.5 MG/0.5 ML SYR IV PRN ×2 (09:25→17:05)
[2019-05-12] MEDS ORDERED: OXYCODONE/ACETAMINOPHEN 5mg/325mg TAB PO STA (11:19)
--- NOTE | 2019-05-12 12:40 | Gastroenterology Progress Note ---
Date of Service May 12, 2019 Assessment & Plan (1) Crohns disease: 34 year old female with celiac, Crohn's Colitis on Stelara admitted for failed OP tx of a flare. Symptoms are slowly improving (smaller area of pain, less frequent BMs, no night time wakening for defecation). However, still with significant blood in stools and abdominal cramping. - Would continue gluten free soft diet. - Reasonable to increase IV steroids though typically little increase in therapeutic value of doses >60/day. Will need transition to PO steroid taper at discharge: Prednisone 40 mg daily x 2 weeks decreasing by 5 mg per week - Increase dicyclomine to 20mg TID prn. - Antiemetics PRN - OK to continue low residual diet. - Would limit narcotic analgesia (2) Bloody diarrhea: Supervising Physician Co-Signing Physician Notes Late entry: Patient was seeen and examined on 05/12 with DELFINA Maravilla whose note reflects our findings and plan. Subjective 34-year-old female with active severe Crohn's disease. admitted for flare not responsive to OP management. Today, less blood in BMs, and no night time wakening to pass a BM but still liquid BMs consisting of mostly blood. Still left sided abdominal pain, in waves, sometimes quite severe. Bentyl helps, "but not enough." Oral acetaminophen/codeine not effective Review of Systems Review of Systems: ROS: Gen: Mild, fatigue and generalized weakness. No fevers Eyes: No eye redness, or pain, no recent vision changes Resp: No SOB, no cough Cardio: No palpitations/irregular beats, no chest pain : Denies pain on urination Skin: No jaundice, itching or new rashes Gastrointestinal: + abdominal pain, + cramping, + diarrhea/loose stools and + blood in stools Physical Exam Constitutional: WD/WN, vitals as above Eyes: PERRL, conjunctivae normal, anicteric sclerae ENMT: Ears: no external ear abnormality Nose: no external nose abnormality Neck: trachea midline, no thyromegaly Respiratory: normal respiratory effort, lungs clear to auscultation Cardiovascular: RRR, no murmur, no edema Gastrointestinal (Abdomen): normal bowel sounds, soft, nontender, no hepatosplenomegaly (only very minimal tenderness in the left mid and lower areas) Skin: no rashes, warm and dry Neurologic: PERRL, EOMI, accommodation nl, no face palsy, no dysarthria moves all extremities Motor/Sensory: no tremor Psychiatric: A+Ox3, euthymic affect Lymphatic: no cervical or axillary lymphadenopathy Results & Data Vital Signs (Past 12 Hours) Vital Signs Temp Pulse Resp BP Pulse Ox 05/12/19 06:59 36.8 C 91 H 18 115/78 95 (1) Crohns disease Digestive disease complication type: unspecified complication Gastrointestinal tract location: unspecified location Qualified Code(s): K50.919 - Crohn's disease, unspecified, with unspecified complications
[2019-05-12] MEDS: OXYCODONE/ACETAMINOPHEN 5mg/325mg TAB PO PRN (15:26)
--- NOTE | 2019-05-12 17:06 | Hospitalist Progress Note ---
Date of Service May 12, 2019 Assessment & Plan (1) Crohns disease: Moderate to severe active Crohn's disease with multiple episodes of liquid bloody stools over the past week. She is improving on steroids. Increase solumedrol to 20mg IV q6hrs. CRP elevated to 6, will trend inflammatory markers. Expect leukocytosis in setting of steroids. Appreciate GI recommendations. Holding Stelara at this time. Continue supportive care. (2) Acute blood loss anemia: Secondary to GI bleeding. This is improving, she is hemodynamically stable. No indication for transfusion at this time. (3) DVT prophylaxis: DVT prophylaxis contraindicated in setting of blood loss anemia. SCDs/ambulation Full code Disposition-pending ability to tolerate solid food without pain and GI clearance. Evon Palafox DO [facility] Hospitalist Subjective reports persistent bloody stools that are improved however, has sharp stabbing pains intermittently irrespective of food, which she is keeping down and not avoiding at this point. denies fevers or chills stool studies negative for common bacterial infections. Review of Systems Review of Systems: All systems reviewed & are unremarkable except as noted in HPI & below Physical Exam Physical Exam: CONSTITUTIONAL: WNWD, vitals as above, generally well- appearing EYES: normal conjunctivae, no scleral icterus ENT: MMM RESPIRATORY: clear to auscultation bilaterally, no crackles, rales or wheezes, normal respiratory effort CARDIOVASCULAR: regular rate and rhythm, S1 and 2 heard without murmurs, gallops or rubs, no JVD, no peripheral edema GASTROINTESTINAL: normal bowel sounds, soft, nontender, nondistended MUSCULOSKELETAL: strength 5/5 throughout, head is normocephalic and atraumatic SKIN: warm and dry NEUROLOGIC: CN 2-12 grossly intact, no sensory deficit, normal cognition, normal speech, no gross focal deficits. PSYCHIATRIC: alert cooperative and oriented to person, place and time. Results & Data Vital Signs (Past 12 Hours) Vital Signs Temp Pulse Resp BP Pulse Ox 05/12/19 15:12 36.8 C 93 H 14 123/81 96 05/12/19 06:59 36.8 C 91 H 18 115/78 95 Laboratory Results Short CBC 05/12/19 Range/Units 07:12 WBC 16.95 H (4.8-10.8) K/uL Hgb 12.2 (12.0-16.0) g/dL Hct 37.4 (37-47) % Plt Count 408 H (130-400) K/uL [facility] 05/12/19 07:12 Sodium 136 Potassium 4.1 Chloride 104 Carbon Dioxide 26 BUN 11 Creatinine 0.73 Glucose 137 H Calcium 8.9 Medications Administered Current Inpatient Medications Acetaminophen (Tylenol) 650 mg PO Q4H PRN PRN Reason: pain/fever Stop: 06/08/19 15:35 Last Admin: 05/11/19 09:48 Dose: 650 mg Documented by: Dicyclomine HCl (Bentyl) 20 mg PO TID PRN PRN Reason: Abdominal Discomfort Stop: 06/08/19 15:35 Hydromorphone HCl (Dilaudid) 0.5 mg IV Q3H PRN PRN Reason: Pain Stop: 05/23/19 21:26 Last Admin: 05/12/19 17:05 Dose: 0.5 mg Documented by: Methylprednisolone 20 mg/ (Syringe) 0.32 mls @ 1.5 mls/min IV Q6H DUANE Stop: 06/11/19 13:59 Last Admin: 05/12/19 13:27 Dose: 1.5 mls/min Documented by: Lorazepam (Ativan) 1 mg PO HS PRN PRN Reason: Anxiety Stop: 06/08/19 15:35 Lillow: Non- Formulary Patient's Own Med 1 ea PO DAILY@2100 DUANE Stop: 06/08/19 20:59 Last Admin: 05/11/19 20:05 Dose: 1 ea Documented by: Ondansetron HCl (Zofran) 4 mg IV Q6H PRN PRN Reason: Nausea Stop: 06/08/19 15:35 Oxycodone/Acetaminophen (Percocet 5mg/325mg) 1 tab PO Q4H PRN PRN Reason: Pain Stop: 05/26/19 11:17 Last Admin: 05/12/19 15:26 Dose: 1 tab Documented by: (1) Crohns disease Digestive disease complication type: unspecified complication Gastrointest inal tract location: unspecified location Qualified Code(s): K50.919 - Crohn's disease, unspecified, with unspecified complications
[2019-05-12] MEDS: [UNRECOGNIZED DRUG - OTHER] PO SCH (20:23)
[2019-05-12] MEDS ORDERED: LORazepam 0.5 MG TAB PO STA (20:39)
[2019-05-13] MEDS: methylPREDNISolone 20 MG in SYRINGE 0 ML IV SCH ×3 (02:02→13:29)
[2019-05-13 06:48] LABS: Hematocrit (blood only) 36.3 % (37-47); Hemoglobin 11.7 g/dL (12.0-16.0); Mean Corpuscular Hemoglobin 28.5 pg (25-34); Mean Corpuscular Hgb Conc 32.2 g/dL (32-36); Mean Corpuscular Volume 88.5 fL (80-100); Mean Platelet Volume 9.5 fL (7.4-10.4); Nucleated RBC # (auto) 0.03 K/uL (0-0); Nucleated RBC % (auto) 0.2 %; Platelet Count 380 K/uL (130-400); RDW Coefficient of Variation 13.7 % (11.5-14.5); RDW Standard Deviation 44.5 fL (36.4-46.3); White Blood Count 16.46 K/uL (4.8-10.8)
[2019-05-13 07:30] LABS: C Reactive Protein 7.09 mg/dl (0-0.29); Magnesium 2.3 mg/dl (1.8-2.4)
[2019-05-13] MEDS: OXYCODONE/ACETAMINOPHEN 5mg/325mg TAB PO PRN (08:59)
--- NOTE | 2019-05-13 15:38 | Gastroenterology Progress Note ---
Date of Service May 13, 2019 Assessment & Plan (1) Bloody diarrhea: diarrhea secondary to IBD flare, resolving/improving. Would recommend PO prednisone 40 mg daily for 2 weeks and taper thereafter, she has a follow up appointment with her GI early next week and will be discussing any adjustments to her stellara at that time as well. diet as tolerated Subjective pt seen and examined, notes the diarrhea is much improved, denies any blood per rectum, denies abdomianl pains, n/v, chills, sweats. Review of Systems Constitutional: no fever and no chills Respiratory: no cough, no dyspnea and no dyspnea on exertion Cardiovascular: no chest pain and no dyspnea Gastrointestinal: as per Subjective / HPI Psychiatric: no depression and no anxiety Physical Exam Constitutional: WD/WN, vitals as above Respiratory: normal respiratory effort, lungs clear to auscultation Cardiovascular: RRR, no murmur, no edema Gastrointestinal (Abdomen): normal bowel sounds, soft, nontender, no hepatosplenomegaly Musculoskeletal: no lower extremity edema Psychiatric: A+Ox3, euthymic affect Results & Data Vital Signs (Past 12 Hours) Vital Signs Temp Pulse Resp BP Pulse Ox 05/13/19 15:18 36.9 C 78 18 126/83 96 05/13/19 11:32 37.1 C 72 18 115/75 97 05/13/19 07:20 37.0 C 77 16 105/73 98 PG Care Time/CCT Total # of Minutes Spent Total Time Spent with Patient: Total time spent is greater than 50% in workforce management coordinator rdination of care (as documented) at patient's floor/unit and/or counseling patient:
--- NOTE | 2019-05-13 15:45 | Discharge Summary ---
Date of Service May 13, 2019 Admission HPI Per Admitting Provider Pt is 34 y/o F with PMH IBD presented to ER with c/o bloody diarrhea. Pt 2 weeks ago started with some mild abdominal cramping and noticed started 2-3 loose stools a day. She reports on 04/29/19 started hydrocortisone enemas and thought was getting better with decreased amount of BM's. Stopped enemas as felt like was getting better than had increased amount of loose stools. Tried Proctofoam 4 days ago but felt like was not helping as did not feel like applicator was appropriate and discontinued that 2-3 days ago. Last week started with red bloody diarrhea and past several days with diffuse red blood. Has been having approx 6-9 episodes bloody BM's a day. Was started on prednisone 40mg daily, took first dose yesterday on 05/08/19. Taking Bentyl with some relief of abdominal cramping. Decreased oral intake past several days. She reports in March had rash to torso that was evaluated by dermatology and determined to be staph from wound culture and was treated with cephalexin for 10 days. Pt reports rash resolved. States that her Stelera was delayed secondary to rash (receives every 8 weeks). She was originally scheduled to receive Stelera on 03/23/19, however had dose on 04/06/19. Denies any other recent changes in medications. Pt thinks her last IBD flare was in 2014 and reports hasn't needed oral steroids since then. Colonoscopy in 12/2018: No evidence of active colitis. Changes c/w chronic colitis. LMP 05/03/19-/05/07/19. Denies fever/chills, diaphoresis, vomiting, MARCIAL, dizziness, syncope, vision changes, neck pain, CP, SOB, orthopnea, palpitations, cough, sore throat, choking, otalgia, rhinorrhea, paresthesias, weakness, extremity edema, ohter rashes, dysuria, hematuria, urinary frequency. Denies recent ETOH use. Denies recent travel, ill contacts. Admission Exam Per Admitting Provider General: no distress, WDWN Head: normocephalic, atraumatic Eyes: PERRL, EOM's intact, conjunctiva non-injected, anicteric ENT: normal inspection external ears, nose, mucous membranes dry Neck: supple, trachea midline Lungs: clear, no respiratory distress, no wheezing/rhonchi/rales CV: RRR, no murmur, no pretibial edema Abd: normal BS, soft, non-tender to palpation Ext: no cyanosis, no calf tenderness Neuro: A&O x 3, no focal deficits noted, normal affect Skin: warm, dry Principal Diagnosis Chrons flare Discharge Data Allergies Allergy/AdvReac Type Severity Reaction Status Date / Time No Known Allergies Allergy Mild Verified 05/09/19 10:34 Consultations 05/09/19 13:19 ED Decision to Admit Stat 05/09/19 15:36 Consult Gastroenterology Routine Hospital Course (1) Crohns disease: (2) Acute blood loss anemia: 34-year-old female with Crohn's disease presenting with worsening abdominal pain and bloody stool. She was admitted for an IBD exacerbation. Stelara was held and IV steroids were started. GI was consulted. Supportive care continued for the next several days as she began to tolerate p.o. and liquid bloody bowel movements improved. Acute blood loss anemia was noted without need for blood transfusion. Stool studies were performed and negative for infection. At time of discharge a [id number] examination was performed revealing a hemodynamically stable and afebrile patient in no acute distress. She was mentating ambulating baseline and tolerating p.o. Physical exam was otherwise unremarkable including no tenderness to palpation of abdomen. She was sent home in stable condition with close primary care follow-up recommended. Total Time Total Time Spent Total Time Spent (In Minutes): 60 Total Time Includes: Examination of the Patient, Discharge Planning, Medication Reconciliation and Communication With Other Providers Discharge Plan Discharge Items Patient Disposition: Home - Self-Care Reason For Visit: IBD EXACERBATION Discharge Diagnosis: Chrons flare Condition on Discharge: Good Activity: Resume your previous activity Non-emergency contact: Primary Care Provider Call non-emergency contact if: you have any medication questions, your symptoms worsen, your pain is not controlled, your pain is worsening, your pain is unusual for you, your pain is concerning for you and you have a fever Follow-up/Referrals: Ana María Tabor [Physician] - Ashlee Suggs PA-C [Primary Care Provider] - Diet: Gluten Free Addtl Attending Provider Instructions: Please take all medications as instructed on discharge list below. Regarding your taper of prednisone, this will start after taking prednisone 40mg once daily x 14 days (you have these pills already). The taper will be guided by your concrete wall grinder operator on follow-up but will likely consist of you continuing prednisone with a step down in therapy by 5mg every week after the initial two week period. Cont to hold taking Stelara until your follow-up with your concrete wall grinder operator. It is recommended that you see your primary care physician for a hospital follow-up. You have been scheduled at the following time: 05/19/2019 11:00 AM Winifred Mendoza PA-C [facility] It was a pleasure taking care of you! Please call if you have any questions or problems. You can reach a [facility] hospitalist on duty at [facility] 24 hours a day by calling [phone]. Take care of yourself. Evon Palafox, [facility] Hospitalist Pending Studies at Discharge: No Stand-Alone Forms: My [facility] Medications and DC Order Prescriptions: New oxycodone-acetaminophen [Percocet] 5-325 mg Tablet 1 tab PO Q4H PRN (Reason: pain) Qty: 10 RF: 0 Continued lorazepam 1 mg tablet 1 mg PO HS PRN (Reason: Anxiety) Qty: 30 RF: 0 prednisone 10 mg Tablet 40 mg PO DAILY RF: 0 dicyclomine 10 mg capsule 10 mg PO TID PRN (Reason: Abdominal Discomfort) RF: 0 levonorgestrel-ethinyl estrad [Lillow (28)] 0.15-0.03 mg tablet 1 tab PO DAILY RF: 0 Proctofoam HC 1-1 % foam 1 applic OK Q12H RF: 0 Discontinued Stelara 90 mg/mL syringe subcut .q 8 weeks RF: 0 Discharge Orders: Discharge Order (Routine); Ordered 05/13/19 Ordered By: Evon Cline/Other Patient Handouts: Abd Pain Admission Data Admit Date/Time: 05/09/19 14:24 Attending Provider: Evon Palafox Admit Provider: Eovn Palafox Primary Care Provider: Ashlee Suggs Other Providers: Evon Palafox ; Felicity Renner Other Interventions: Discharge Summary Assessment (RN) Last Done: 05/13/19 15:57 DC Date/Time DO NOT enter until pt leaves facility: 05/13/19 16:08
== END 2019-05-13 16:08 | disposition home or self-care (01) | DRG 386 ==
LOC: ED 08:18 → 3N 14:24

== ENCOUNTER 2020-02-26 00:47 | Inpatient (IN) ==
[2020-02-26] MEDS ORDERED: ONDANSETRON INJ 2 MG/ML 2 ML VIAL IV STA (01:05)
[2020-02-26] MEDS ORDERED: HYDROmorphone INJ 0.5 MG/0.5 ML SYR IV STA ×2 (01:05→02:28)
[2020-02-26] MEDS ORDERED: SODIUM CHLORIDE 0.9% 1000ML 1,000 ML IV ONE (01:05)
[2020-02-26] MEDS ORDERED: FAMOTIDINE 20MG/5ML IV PUSH IV STA (01:08)
[2020-02-26 02:14] LABS: Hematocrit (blood only) 25.9 % (37-47); Hemoglobin 7.9 g/dL (12.0-16.0); Mean Corpuscular Hemoglobin 26.7 pg (25-34); Mean Corpuscular Hgb Conc 30.5 g/dL (32-36); Mean Corpuscular Volume 87.5 fL (80-100); Nucleated RBC # (auto) 0.21 K/uL (0-0); Nucleated RBC % (auto) 1.5 %; Platelet Count 496 K/uL (130-400); RDW Coefficient of Variation 14.9 % (11.5-14.5); Red Blood Count 2.96 M/uL (4.2-5.4)
[2020-02-26 02:18] LABS: Appearance Urine Clear (Clear); Bacteria Urine Automated 1+ (Negative); Bilirubin Urine Negative (Negative); Blood Urine 2+ (Negative); Color Urine Yellow; Epithelial Cell Urine Auto 20-30 /lpf (0-5); Glucose Urine UA Negative (Negative); Ketones Urine Trace (Negative); Leukocyte Esterase Urine Negative (Negative); Nitrite Urine Negative (Negative); Protein Urine Negative (Negative); Specific Gravity Urine 1.021 (1.000-1.030); Urobilinogen Urine Negative (Negative)
[2020-02-26] MEDS ORDERED: methylPREDNISolone 125 MG/2 ML VIAL IV STA (02:30)
[2020-02-26 02:34] LABS: Alanine Aminotransferase 13 U/L (12-78); Albumin Level 2.4 gm/dl (3.4-5.0); Aspartate Aminotransferase 6 U/L (15-37); Blood Urea Nitrogen 9 mg/dl (7-18); Calcium 8.2 mg/dl (8.5-10.1); Carbon Dioxide 25 mmol/L (21-32); Chloride 109 mmol/L (98-107); Est GFR (African American) 115.8; Est GFR (Non-African American) 99.9; Glucose 82 mg/dl (70-99); Lipase 70 U/L (73-393); Potassium 3.5 mmol/L (3.5-5.1); Sodium 143 mmol/L (136-145)
[2020-02-26 02:37] LABS: Albumin Globulin Ratio 0.5 (0.9-2); Alkaline Phosphatase 45 U/L (45-117); Bilirubin,Total 0.2 mg/dl (0.2-1); Globulin 4.5 gm/dl (2.5-4.0); Total Protein 6.9 gm/dl (6.4-8.2)
[2020-02-26 02:46] LABS: ALC (manual) 2.74 K/uL (1.2-3.4); ANC (manual) 9.92 K/uL (1.4-6.5); Basophils # (manual) 0.13 K/uL (0-0.2); Basophils % (manual) 0.9 %; Lymphocytes # (manual) 2.74 K/uL (1.2-3.4); Metamyelocytes # (manual) 0.13 K/uL (0-0); Metamyelocytes % (manual) 0.9 %; Monocytes # (manual) 1.48 K/uL (0.11-0.59); Monocytes % (manual) 10.3 %; Neutrophils # (manual) 9.92 K/uL (1.4-6.5); Neutrophils % (manual) 68.9 %; Polychromasia 1+; Tear Drop Cells 1+
[2020-02-26] MEDS ORDERED: HYDROmorphone INJ 1 MG/ML SYRINGE IV STA (03:51)
[2020-02-26] MEDS ORDERED: DICYCLOMINE HCL 10 MG CAP PO PRN (05:07)
[2020-02-26] MEDS ORDERED: ACETAMINOPHEN 325 MG TAB PO PRN (05:07)
--- NOTE | 2020-02-26 05:17 | Emergency Department Note ---
History of Present Illness General Chief complaint: GI Assessment Stated complaint: CROHNS FLARE Time Seen by Provider: 02/26/20 00:55 Source: patient Mode of arrival: ambulatory Limitations: no limitations History of Present Illness Provider complaint: Abdominal pain, bright red blood per rectum, Crohn's flare Maximum Pain Intensity: 5 This patient is a 34-year-old female who presents emergency department with complaints of worsening abdominal pain over the last 7 to 10 days. She states she has a history of Crohn's and is currently on Stelara. She does follow with Dr. Tabor of [facility] gastroenterology. Patient was recently referred to a specialist at [facility] who also prescribed Proctofoam. She states she has had 3-4 BMs at night while sleeping. Each 1 has given her bright red blood per rectum. She denies any fevers, but admits to abdominal cramping a nd nausea. She completed a steroid taper just previous to the symptoms exacerbating. Patient denies any chest pain, shortness of breath, cough. Home Medications Home Medications Medication Instructions Recorded Confirmed Type levonorgestrel-ethinyl estrad 1 tab PO HS 05/09/19 02/26/20 History [Ruby (28)] ascorbic acid (vitamin C) [Vitamin 1,000 mg PO DAILY 02/26/20 02/26/20 History C] citalopram 10 mg PO DAILY 02/26/20 02/26/20 History dicyclomine 10 mg PO TID PRN 02/26/20 02/26/20 History hydrocortisone-pramoxine 1 applic MT TID 02/26/20 02/26/20 History [Proctofoam HC] lorazepam 1 mg PO HS PRN 02/26/20 02/26/20 History mesalamine 1,000 mg MT HS 02/26/20 02/26/20 History multivitamin 1 tab PO DAILY 02/26/20 02/26/20 History oxycodone-acetaminophen 1 tab PO Q8 PRN 02/26/20 02/26/20 History ustekinumab [Stelara] 90 mg SUBCUT MONTHLY 02/26/20 02/26/20 History Allergies Allergy/AdvReac Type Severity Reaction Status Date / Time No Known Allergies Allergy Mild Verified 09/12/19 14:46 Past Med/Surg History Medical History Celiac disease Crohns disease (Chronic) Surgical History History of colonoscopy History of kidney surgery 1987 Hx of tonsillectomy 1996 S/P ear surgery ear tubes Family History Grandfather (Paternal) Coronary heart disease Father Hypertension Social History Preferred Language: Amharic Communication Ability: Effective Line Pilot Required: No Beliefs That Will Affect Care: None marital status: Single Current Living Situation: Significant Other current occupational status: employed current occupation: [employer] Other Information That Helps Us Care for You: No Feels Safe at Home: Yes Safety Concerns: Feels Safe At This Time Smoking Status: Never smoker Hx Alcohol Use: No Hx Substance Use: No Review of Systems See HPI for pertinent positives & negatives. and A total of 10 systems reviewed and were otherwise negative Physical Exam Vital Signs Vital Signs - 24 hr 02/26/20 01:17 02/26/20 02:30 02/26/20 02:33 Pulse Rate 104 H 105 H Pulse Rate from SpO2 Sensor Respiratory Rate 15 16 Blood Pressure 123/75 Blood Pressure Mean 85 Pulse Oximetry 100 100 Oxygen Delivery Method Room Air 02/26/20 02:34 02/26/20 03:00 02/26/20 03:15 Pulse Rate 109 H 110 H 108 H Pulse Rate from SpO2 Sensor 108 H 110 H 110 H Respiratory Rate 16 16 17 Blood Pressure 113/75 Blood Pressure Mean 81 Pulse Oximetry 100 98 98 Oxygen Delivery Method 02/26/20 03:30 02/26/20 03:31 Pulse Rate 115 H 115 H Pulse Rate from SpO2 Sensor 114 H 114 H Respiratory Rate 16 17 Blood Pressure 129/80 Blood Pressure Mean 85 Pulse Oximetry 97 98 Oxygen Delivery Method Vital signs reviewed. General: Well-appearing 34 yo female, in no significant distress. HEENT: No scleral icterus, PERRLA, neck supple. Atraumatic. Cardiovascular: Regular rate and rhythm, no extra sounds. Pulmonary: Clear to auscultation bilaterally, normal work of breathing. Abdomen: Soft, diffusely tender, nondistended, positive bowel sounds. Musculoskeletal: Atraumatic, no peripheral edema. Neurologic: Patient awake alert and oriented x 3 Skin: Warm, dry, no rash Course Administered Medications Ascorbic Acid (Vitamin C) 1,000 mg PO DAILY DUANE Stop: 03/27/20 08:59 Last Admin: 02/26/20 08:21 Dose: Not Given Documented by: [id number] Citalopram Hydrobromide (Celexa) 10 mg PO DAILY DUANE Stop: 03/27/20 08:59 Last Admin: 02/26/20 08:20 Dose: 10 mg Documented by: [id number] Hydromorphone HCl (Dilaudid) 0.5 mg IV Q3H PRN PRN Reason: Pain Stop: 03/11/20 05:06 Last Admin: 02/26/20 23:44 Dose: 0.5 mg Documented by: [id number] Admin: 02/26/20 20:17 Dose: 0.5 mg Documented by: [id number] Admin: 02/26/20 17:07 Dose: 0.5 mg Documented by: [id number] Admin: 02/26/20 13:01 Dose: 0.5 mg Documented by: [id number] Admin: 02/26/20 09:43 Dose: 0.5 mg Documented by: [id number] Admin: 02/26/20 06:23 Dose: 0.5 mg Documented by: [id number] Dextrose/Sodium Chloride (D5w And Nss) 1,000 mls @ 125 mls/hr IV .Q8H DUANE Stop: 03/27/20 05:06 Last Admin: 02/26/20 22:14 Dose: 125 mls/hr Documented by: [id number] Infusion: 02/26/20 21:01 Dose: 125 mls/hr Documented by: [id number] Admin: 02/26/20 13:01 Dose: 125 mls/hr Documented by: [id number] Infusion: 02/26/20 13:01 Dose: 125 mls/hr Documented by: [id number] Admin: 02/26/20 06:23 Dose: 125 mls/hr Documented by: [id number] Methylprednisolone 20 mg/ (Syringe) 0.32 mls @ 1.5 mls/min IV Q8 DUANE Stop: 03/27/20 05:59 Last Admin: 02/26/20 22:14 Dose: 1.5 mls/min Documented by: [id number] Admin: 02/26/20 13:51 Dose: 1.5 mls/min Documented by: [id number] Admin: 02/26/20 06:26 Dose: 1.5 mls/min Documented by: [id number] Miscellaneous (Order Awaiting Action) 1 ea N/A QS [facility] Stop: 03/27/20 07:59 Last Admin: 02/26/20 23:44 Dose: Not Given Documented by: [id number] Admin: 02/26/20 15:17 Dose: Not Given Documented by: [id number] Admin: 02/26/20 08:18 Dose: Not Given Documented by: [id number] Multivitamins (Multivitamin Tab) 1 tab PO DAILY DUANE Stop: 03/27/20 08:59 Last Admin: 02/26/20 08:21 Dose: Not Given Documented by: [id number] Ondansetron HCl (Zofran) 4 mg IV Q6H PRN PRN Reason: Nausea Stop: 03/27/20 05:06 Last Admin: 02/26/20 23:44 Dose: 4 mg Documented by: [id number] Discontinued Medications Famotidine (Pepcid 20mg Iv Push) 20 mg IV ONE STA Stop: 02/26/20 01:09 Last Admin: 02/26/20 01:26 Dose: 20 mg Documented by: [id number] Hydromorphone HCl (Dilaudid) 0.5 mg IV NOW STA Stop: 02/26/20 01:06 Last Admin: 02/26/20 01:26 Dose: 0.5 mg Documented by: [id number] Hydromorphone HCl (Dilaudid) 0.5 mg IV NOW STA Stop: 02/26/20 02:29 Last Admin: 02/26/20 02:34 Dose: 0.5 mg Documented by: [id number] Hydromorphone HCl (Dilaudid) 1 mg IV NOW STA Stop: 02/26/20 03:52 Last Admin: 02/26/20 03:57 Dose: 1 mg Documented by: [id number] Sodium Chloride (Nss 1000ml) 1,000 mls @ 999 mls/hr IV .Q1H1M ONE Stop: 02/26/20 02:05 Last Infusion: 02/26/20 02:34 Dose: 0 mls/hr Documented by: [id number] Admin: 02/26/20 01:26 Dose: 999 mls/hr Documented by: [id number] Magnesium Sulfate/Dextrose (Magnesium Sulfate / D5w) 1 gm in 100 mls @ 50 mls/hr IV ONE ONE Stop: 02/26/20 09:44 Last Infusion: 02/26/20 10:26 Dose: 0 mls/hr Documented by: [id number] Admin: 02/26/20 08:18 Dose: 50 mls/hr Documented by: [id number] Methylprednisolone (Solumedrol) 125 mg IV NOW STA Stop: 02/26/20 02:31 Last Admin: 02/26/20 02:34 Dose: 125 mg Documented by: [id number] Methylprednisolone (Solumedrol) 20 mg IV NOW STA Stop: 02/26/20 03:52 Last Admin: 02/26/20 03:57 Dose: 20 mg Documented by: [id number] Ondansetron HCl (Zofran) 4 mg IV NOW STA Stop: 02/26/20 01:06 Last Admin: 02/26/20 01:26 Dose: 4 mg Documented by: [id number] Medical Decision Making Differential Diagnosis Differential diagnosis: Etiologies such as biliary colic, cholecystitis, hepatitis, perihepatitis, pancreatitis, cardiac disease, pancreatitis, gastritis, peptic ulcer disease, appendicitis, ovarian cyst, ovarian torsion, ectopic , pelvic inflammatory disease, cystitis, diverticulitis, mesenteric ischemia, inflam matory bowel disease, ileus, bowel obstruction, aortic pathology, shingles, as well as others were considered. Medical Records Attestation: I reviewed the patient's medical records. Home Medications Current Medication List: was personally reviewed by me Laboratory Data Attestation: I reviewed the patient's lab results. Result diagrams: 02/26/20 15:10 02/26/20 06:57 Lab Results 02/26/20 02/26/20 02/26/20 Range/Units 01:17 01:17 02:00 WBC 14.40 H (4.8-10.8) K/uL RBC 2.96 L (4.2-5.4) M/uL Hgb 7.9 L (12.0-16.0) g/dL Hct 25.9 L (37-47) % MCV 87.5 (80-100) fL MCH 26.7 (25-34) pg MCHC 30.5 L (32-36) g/dL RDW Std Deviation 47.0 H (36.4-46.3) fL RDW Coeff of Elie 14.9 H (11.5-14.5) % Plt Count 496 H (130-400) K/uL MPV 9.0 (7.4-10.4) fL Absolute Nucleated RBC 0.21 H (0-0) K/uL Nucleated RBC % (auto) 1.5 % Neutrophils % (Manual) 68.9 % Lymphocytes % (Manual) 19.0 % Monocytes % (Manual) 10.3 % Basophils % (Manual) 0.9 % Metamyelocytes % (Man) 0.9 % Neutrophils # (Manual) 9.92 H (1.4-6.5) K/uL Total Absolute Neuts 9.92 H (1.4-6.5) K/uL Lymphocytes # (Manual) 2.74 (1.2-3.4) K/uL Total Abs Lymphocytes 2.74 (1.2-3.4) K/uL Monocytes # (Manual) 1.48 H (0.11-0.59) K/uL Basophils # (Manual) 0.13 (0-0.2) K/uL Metamyelocytes # (Man) 0.13 H (0-0) K/uL Polychromasia 1+ Tear Drop Cells 1+ Sodium 143 (136-145) mmol/L Potassium 3.5 (3.5-5.1) mmol/L Chloride 109 H (98-107) mmol/L Carbon Dioxide 25 (21-32) mmol/L Anion Gap 9.0 (3-11) BUN 9 (7-18) mg/dl Creatinine 0.78 (0.6-1.2) mg/dl Est Cr Clr Drug Dosing Not Reportable Est GFR ( Amer) 115.8 Est GFR (Non-Af Amer) 99.9 BUN/Creatinine Ratio 12.0 (10-20) Glucose 82 (70-99) mg/dl Calcium 8.2 L (8.5-10.1) mg/dl Total Bilirubin 0.2 (0.2-1) mg/dl AST 6 L (15-37) U/L ALT 13 (12-78) U/L Alkaline Phosphatase 45 (45-117) U/L Total Protein 6.9 (6.4-8.2) gm/dl Albumin 2.4 L (3.4-5.0) gm/dl Globulin 4.5 H (2.5-4.0) gm/dl Albumin/Globulin Ratio 0.5 L (0.9-2) Lipase 70 L (73-393) U/L Urine Color Yellow Urine Appearance Clear (Clear) Urine pH 7.0 (4.5-7.5) Ur Specific [place] 1.021 (1.000-1.030) Urine Protein Negative (Negative) Urine Glucose (UA) Negative (Negative) Urine Ketones Trace H (Negative) Urine Blood 2+ H (Negative) Urine Nitrite Negative (Negative) Urine Bilirubin Negative (Negative) Urine Urobilinogen Negative (Negative) Ur Leukocyte Esterase Negative (Negative) Urine WBC (Auto) 1-5 (0-5) /hpf Urine RBC (Auto) 10-30 H (0-4) /hpf U Hyaline Cast (Auto) 1-5 (0-5) /lpf U Epithel Cells (Auto) 20-30 H (0-5) /lpf Urine Bacteria (Auto) 1+ H (Negative) POC Ur Test (NEG) Stl C. diff Tox B Gene (Neg) Blood Type Antibody Screen Crossmatch 02/26/20 02/26/20 02/26/20 Range/Units 02:00 02:00 02:20 WBC (4.8-10.8) K/uL RBC (4.2-5.4) M/uL Hgb (12.0-16.0) g/dL Hct (37-47) % MCV (80-100) fL MCH (25-34) pg MCHC (32-36) g/dL RDW Std Deviation (36.4-46.3) fL RDW Coeff of Elie (11.5-14.5) % Plt Count (130-400) K/uL MPV (7.4-10.4) fL Absolute Nucleated RBC (0-0) K/uL Nucleated RBC % (auto) % Neutrophils % (Manual) % Lymphocytes % (Manual) % Monocytes % (Manual) % Basophils % (Manual) % Metamyelocytes % (Man) % Neutrophils # (Manual) (1.4-6.5) K/uL Total Absolute Neuts (1.4-6.5) K/uL Lymphocytes # (Manual) (1.2-3.4) K/uL Total Abs Lymphocytes (1.2-3.4) K/uL Monocytes # (Manual) (0.11-0.59) K/uL Basophils # (Manual) (0-0.2) K/uL Metamyelocytes # (Man) (0-0) K/uL Polychromasia Tear Drop Cells Sodium (136-145) mmol/L Potassium (3.5-5.1) mmol/L Chloride (98-107) mmol/L Carbon Dioxide (21-32) mmol/L Anion Gap (3-11) BUN (7-18) mg/dl Creatinine (0.6-1.2) mg/dl Est Cr Clr Drug Dosing Est GFR ( Amer) Est GFR (Non-Af Amer) BUN/Creatinine Ratio (10-20) Glucose (70-99) mg/dl Calcium (8.5-10.1) mg/dl Total Bilirubin (0.2-1) mg/dl AST (15-37) U/L ALT (12-78) U/L Alkaline Phosphatase (45-117) U/L Total Protein (6.4-8.2) gm/dl Albumin (3.4-5.0) gm/dl Globulin (2.5-4.0) gm/dl Albumin/Globulin Ratio (0.9-2) Lipase (73-393) U/L Urine Color Urine Appearance (Clear) Urine pH (4.5-7.5) Ur Specific [place] (1.000-1.030) Urine Protein (Negative) Urine Glucose (UA) (Negative) Urine Ketones (Negative) Urine Blood (Negative) Urine Nitrite (Negative) Urine Bilirubin (Negative) Urine Urobilinogen (Negative) Ur Leukocyte Esterase (Negative) Urine WBC (Auto) (0-5) /hpf Urine RBC (Auto) (0-4) /hpf U Hyaline Cast (Auto) (0-5) /lpf U Epithel Cells (Auto) (0-5) /lpf Urine Bacteria (Auto) (Negative) POC Ur Test NEG (NEG) Stl C. diff Tox B Gene Negative Cdiff Gene (Neg) Blood Type A Negative Antibody Screen NEGATIVE Crossmatch See Detail Imaging Data Attestation: I personally reviewed and interpreted this imaging study as follows: My Impression: Abdominal x-ray to my interpretation reveals no evidence of obstruction or free air. There is formed stool in the right colon Blood Pressure Blood Pressure Findings: Normal blood pressure Blood Pressure Disposition: did not require urgent referral MDM Narrative This patient was evaluated and appeared to be in no significant distress. IV access was obtained and laboratory work was drawn. An order for cardiac monitoring was placed and the patient was found to be in a sinus tachycardia at 125 bpm bpm. Patient was hydrated with normal saline solution, medicated with IV Dilaudid and IV Zofran. Patient's abdominal x-ray series reveals some formed stool in the right colon but no evidence of obstruction or free air. Laboratory work is significant for an anemia with a hemoglobin of 7.9. Patient did require additional IV Dilaudid for pain control. She was given 125 mg of IV Solu-Medrol. Case was discussed with the hospitalist service who will evaluate the patient for admission and further management. Patient is aware of the plan and agrees. Impression & Plan Crohns disease, Acute blood loss anemia Discharge Plan Visit Data *Final* Discharge Date/Time: 02/26/20 04:46 Chief Complaint: GI Assessment Stated Complaint: CROHNS FLARE ED Provider: Dorothy Valenzuela Discharge Problem: Crohns disease, Acute blood loss anemia Patient Disposition: Admitted As Inpatient Discharge Instructions Interventions: ED Discharge Assessment Last Done: 02/26/20 04:36 Discharge Problem: Crohns disease Qualifiers: Gastrointestinal tract location: unspecified location Digestive disease complication type: with rectal bleeding Qualified Code(s): K50.911 - Crohn's disease, unspecified, with rectal bleeding
[2020-02-26] MEDS ORDERED: LORazepam 1 MG TAB PO PRN (05:24)
--- NOTE | 2020-02-26 06:13 | History and Physical Report ---
DATE OF ADMISSION: 02/26/2020 CHIEF COMPLAINT: Abdominal pain. HISTORY OF PRESENT ILLNESS: This 34-year-old female with past medical history significant for Crohn's disease, iron deficiency anemia, generalized anxiety disorder, presents with Crohn's flare. The patient is having this ongoing flare since November when she was started on prednisone course and she finished prednisone tapering about 1 week ago. The patient had a colonoscopy done in the first week of January, which showed severe colitis in the rectal region. She is currently on Stelara, used to get every 8 weeks, now it was changed to every 4 weeks. She follows with adRisenani KAUFFMAN and also with Josefina, and Josefina KAUFFMAN put her on Proctofoam but it is not helping much and last night she has 5 times bowel movement with bloody bowel movements and there was a lot of blood in it and her abdominal pain getting worse, so she came to the ER requiring IV pain medications. The patient complains of nausea. Have some chills but no fever, no vomiting. Appetite is not that great since last few days, she thinks she lost about 4 pounds. Denies any headache, no blurred vision, no earache, no runny nose, no sore throat, no cough. No difficulty swallowing. No shortness of breath, no chest pain. No rash. Otherwise, ambulates okay. She just had IV iron recently and also she had a dose of Stelara on last . ALLERGIES: No known drug allergies. PAST MEDICAL HISTORY: As mentioned above. PAST SURGICAL HISTORY: Multiple colonoscopies, multiple EGDs with biopsy, tonsillectomy, ureteral reimplantation. MEDICATIONS: Currently the patient is on ascorbic acid 1000 mg p.o. daily, citalopram 10 mg p.o. daily, dicyclomine 10 mg p.o. t.i.d. p.r.n., Proctofoam HC 1 application p.o. t.i.d., levonorgestrel ethinyl estradiol 1 tablet at bedtime, lorazepam 1 mg p.o. bedtime p.r.n., mesalamine 1000 mg p.o. bedtime, multivitamin 1 tablet p.o. daily, oxycodone/acetaminophen 1 tablet p.o. q. 8 hours p.r.n., Stelara 90 mg subcutaneous monthly. FAMILY HISTORY: Significant for paternal grandfather had heart disorder, at age 57 of an [place], maternal grandmother has melanoma. SOCIAL HISTORY: Single. No smoking, alcohol occasionally. No drug use. REVIEW OF SYMPTOMS: As per HPI. Rest of review of symptoms negative. PHYSICAL EXAMINATION: GENERAL: The patient is of moderate built, not in acute distress. VITAL SIGNS: Temperature 36.9, pulse 105, respiratory rate 16, blood pressure 123/75, oxygen 100% on room air. HEENT: Pupils equal, round, reactive to light. Oral mucosa dry. NECK: No JVD, no neck masses seen. CARDIOVASCULAR: S1, S2 heard, regular rate and rhythm, no murmur, no gallop. RESPIRATORY SYSTEM: Normal AP diameter. No accessory muscle use. No wheezing, no crackles. ABDOMEN: Soft, bowel sounds sluggish. Diffuse tenderness, no guarding, no rigidity. No distention. CENTRAL NERVOUS SYSTEM: Cranial nerves II-XII grossly intact, nonfocal. EXTREMITIES: No edema, no erythema. LABORATORY DATA: WBC 14.4, hemoglobin 7.9, hematocrit 25.9, platelets 496. Sodium 143, potassium 3.5, chloride 109, bicarbonate 25, BUN 9, creatinine 0.7, serum glucose 82, calcium 8.2, total bilirubin 0.2, AST 60, ALT 13, alkaline phosphatase 45. Lipase 70. Urinalysis, +1 bacteria. test negative. Stool for C. diff gene negative. KUB x-ray pending. ASSESSMENT AND PLAN: A 34-year-old female who presents with Crohn's flare. 1. Crohn's flare: This is going on since November. She is currently on Stelara, which was every 8 weeks then changed to 4 weeks. She is on Proctofoam which is not helping, she just 1 week ago finished prednisone taper, which was started in November, having several bloody bowel movements daily. We will place on IV Solu-Medrol 20 mg t.i.d. with 1 dose now. Keep her n.p.o., IV fluids, IV pain meds p.r.n., IV antiemetics p.r.n. and consult GI for further recommendations. 2. Anemia, acute blood loss anemia from above: Hemoglobin 7.9, blood consents obtained. Will follow the labs in a.m., if it drops less than 7, we will transfuse PRBC or as per GI. 3. Iron deficiency anemia: Gets IV iron. 4. Depression, anxiety: Citalopram and Ativan p.r.n. 5. Deep venous thrombosis prophylaxis: Sequential compression devices. DISPOSITION: Admit to medical floor. Expect to discharge home and follow with family doctor and GI. RUSTAM
[2020-02-26] MEDS: D5W AND NSS 1,000 ML IV SCH ×3 (06:23→22:14)
[2020-02-26] MEDS: HYDROmorphone INJ 0.5 MG/0.5 ML SYR IV PRN ×6 (06:23→23:44)
[2020-02-26] MEDS: methylPREDNISolone 20 MG in SYRINGE 0 ML IV SCH ×3 (06:26→22:14)
[2020-02-26 07:09] LABS: Hematocrit (blood only) 23.1 % (37-47); Mean Corpuscular Hemoglobin 26.9 pg (25-34); Mean Corpuscular Hgb Conc 30.3 g/dL (32-36); Mean Corpuscular Volume 88.8 fL (80-100); Mean Platelet Volume 8.2 fL (7.4-10.4); Nucleated RBC # (auto) 0.09 K/uL (0-0); Nucleated RBC % (auto) 0.9 %; Platelet Count 436 K/uL (130-400); RDW Standard Deviation 48.6 fL (36.4-46.3); White Blood Count 9.92 K/uL (4.8-10.8)
--- NOTE | 2020-02-26 07:33 | XRay Report ---
KUB HISTORY: Generalized abdominal pain. crohns, diarrhea COMPARISON: KUB 01/29/2018. FINDINGS: The bowel gas pattern is unremarkable. There are no dilated loops of small bowel to suggest an obstruction. No renal calculi. No ureteral calculi. No pneumoperitoneum or pneumatosis. Moderate stool within the proximal colon. Possible bowel wall thickening involving the splenic flexure of the colon. IMPRESSION: Possible bowel wall thickening involving the splenic flexure of the colon suggestive of a colitis. ACT 112: Negative or not required by law. Electronically signed by: Vishal Campo M.D. 02/26/2020 7:32 AM
[2020-02-26 07:37] LABS: BUN Creatinine Ratio 10.6 (10-20); Calcium 7.5 mg/dl (8.5-10.1); Creatinine Clr Calc Pharmacy 120.2 ml/min; Est GFR (African American) 131.9; Est GFR (Non-African American) 113.8; Magnesium 1.7 mg/dl (1.8-2.4)
[2020-02-26 07:39] LABS: Basophils # (auto) 0.01 K/uL (0-0.2); Basophils % (auto) 0.1 %; Dohle Bodies 1+; Eosinophils # (auto) 0.01 K/uL (0-0.5); Eosinophils % (auto) 0.1 %; Immature Granulocytes # (auto) 0.43 K/uL (0.00-0.02); Immature Granulocytes % (auto) 4.3 %; Lymphocytes # (auto) 1.25 K/uL (1.2-3.4); Lymphocytes % (auto) 12.6 %; Monocytes # (auto) 0.96 K/uL (0.11-0.59); Monocytes % (auto) 9.7 %; Neutrophils # (auto) 7.26 K/uL (1.4-6.5); Neutrophils % (auto) 73.2 %; Polychromasia 1+; Toxic Granulation 1+; Toxic Vacuolation 1+
[2020-02-26] MEDS ORDERED: MAGNESIUM SULFATE / D5W 1 GM/100 ML BAG IV ONE (07:45)
[2020-02-26] MEDS: CITALOPRAM 20 MG TAB PO SCH (08:20)
[2020-02-26] MEDS: MULTIVITAMIN TAB PO SCH (08:21)
[2020-02-26] MEDS: ASCORBIC ACID 500 MG TAB PO SCH (08:21)
--- NOTE | 2020-02-26 08:23 | Gastrointestinal Consultation ---
Date of Consultation February 26, 2020 Assessment & Plan (1) Crohns disease: 34 year old female with celiac, Crohn's on Stelara who presents for failed outpatient management of suspected IBD flare w/ up to 10 bloody bowel movements daily. On arrival to the ED repeat stool studies were sent and negative to date. She was started on IV methylpred and made NPO and notes improvement of her pain She is afebrile, non-toxic on exam w/ stable vital signs. Her last BM was around 0500. - Cdiff negative - Culture pending - Consider advancement to gluten free clear liquid diet today - Would continue IV methylpred 20 mg TID today - Will need transition to PO steroid taper at discharge - Prednisone 40 mg daily x 2 weeks decreasing by 5 mg per week - Continue Stelara as ordered - Can trial Bentyl 10 mg three times daily if needed - Antiemetics PRN - Would limit narcotic analgesia - Will need OP follow up with Dr. Tabor and her IBD specialist in [place] Thank you for allowing us to participate in the care of this patient. Please call with any acute changes, questions or concerns. Please see addendum below with additional recommendation from my supervising physician. Supervising Physician Co-Signing Physician Notes I saw and evaluated the patient. She has a history of inflammatory bowel disease and is typically managed as an outpatient by . Patient did have a recent colonoscopy which showed inflammatory changes throughout the colon. As result her Stelara dosing was changed somewhat. The patient does note that she has loose to liquid bowel movements with some bleeding and urgency. Physical examination Pleasant appearing female in no obvious distress Impression: Patient with a history of refractory inflammatory bowel disease. We have started the patient on intravenous steroids which does seem to be helping her symptoms. We will have her continue with this over the next 1 to 2 days until her symptoms improve. Recommendations Continue with intravenous steroids Await stool studies to include C. difficile and stool culture May have a full liquid diet History of Present Illness Reason for Consultation: 34 year old female with history of Crohn's on Stelara, celiac disease on gluten free diet who is admitted through the ED for bloody diarrhea, suspected IBD flare - GI asked to evaluate. She was on a recent extended steroid taper for flare after cscopy. Her Stelara level was checked and noted to be low so her frequency was increased to every four weeks. Notes she made this change just last week. Also completed her steroid taper last week. In the past 72 hours her diarrhea and abd pain had become unmanageable. suggests 3/4 nocturnal BMS and 5/6 stools during the day. all loose. Intermittent BRBPR. No melena. Abd pain is generalized but worse on the left side. c diff negative culture negative to date but pending KUB Possible bowel wall thickening involving the splenic flexure of the colon suggestive of a colitis. EGD 2020: LA class A esophagitis. No evidence of active celiac sprue. Colonoscopy 2020: Appearance of colon consistent with ulcerative colitis, with severe colitis in Rectum. Reese score is 3 in rectum, and 0 in the sigmoid, descending, transverse, and ascending colon. EGD 2019: LA Grade A (one or more mucosal breaks less than 5 mm, not extending between tops of 2 mucosal folds) esophagitis with no bleeding was found. The entire examined stomach was normal. Biopsies were taken with a cold forceps for histology. Patchy mildly erythematous mucosa was found in the duodenal bulb.The exam of the duodenum was otherwise normal, without evidence of active celiac sprue. Biopsies taken throughout the duodenum. Colonoscopy 2019: No evidence of active colitis. Changes c/w chronic colitis Requesting Physician: Teddy Attending Physician: Zuleyma Espinal MD Allergies Allergy/AdvReac Type Severity Reaction Status Date / Time No Known Allergies Allergy Mild Verified 09/12/19 14:46 Home Medications Home Medications Medication Instructions Recorded Confirmed Type levonorgestrel-ethinyl estrad 1 tab PO HS 05/09/19 02/26/20 History [Ruby (28)] ascorbic acid (vitamin C) [Vitamin 1,000 mg PO DAILY 02/26/20 02/26/20 History C] citalopram 10 mg PO DAILY 02/26/20 02/26/20 History dicyclomine 10 mg PO TID PRN 02/26/20 02/26/20 History hydrocortisone-pramoxine 1 applic AL TID 02/26/20 02/26/20 History [Proctofoam HC] lorazepam 1 mg PO HS PRN 02/26/20 02/26/20 History mesalamine 1,000 mg AL HS 02/26/20 02/26/20 History multivitamin 1 tab PO DAILY 02/26/20 02/26/20 History oxycodone-acetaminophen 1 tab PO Q8 PRN 02/26/20 02/26/20 History ustekinumab [Stelara] 90 mg SUBCUT MONTHLY 02/26/20 02/26/20 History Patient History Medical History Celiac disease Crohns disease (Chronic) Surgical History History of colonoscopy History of kidney surgery 1987 Hx of tonsillectomy 1996 S/P ear surgery ear tubes Family History Grandfather (Paternal) Coronary heart disease Father Hypertension Social History Preferred Language: Sami Communication Ability: Effective Assistant Paralegal Required: No Beliefs That Will Affect Care: None marital status: Single Current Living Situation: Significant Other current occupational status: employed current occupation: [employer] Other Information That Helps Us Care for You: No Feels Safe at Home: Yes Safety Concerns: Feels Safe At This Time Smoking Status: Never smoker Hx Alcohol Use: No Hx Substance Use: No Review of Systems Constitutional: no fever, no chills, no fatigue and no anorexia Respiratory: no cough, no dyspnea, no pain with cough and no sputum production Cardiovascular: no chest pain, no radiating jaw, neck or arm pain, no dyspnea and no palpitations Gastrointestinal: + abdominal pain, + change in bowel habits and + diarrhea/loose stools; no blood in stools and no melena Physical Exam Constitutional: well developed and well nourished; no acute distress and not ill appearing Neck: trachea midline Respiratory: normal respiratory effort, lungs clear to auscultation Auscultation: no crackles and no wheezes Cardiovascular: RRR, no murmur, no edema Extremities: no pedal edema Gastrointestinal (Abdomen): Inspection/Auscultation: abdomen normal to inspection and normal bowel sounds Percussion/Palpation: + abdomen tender and abdomen soft; no guarding, abdomen not rigid and no abdominal mass Skin: no rashes, warm and dry Results & Data ([facility]) Vital Signs (Past 12 Hours) Vital Signs Temp Pulse Pulse Resp BP BP BP 02/26/20 07:16 36.6 C 104 H 16 105/69 02/26/20 05:02 36.9 C 89 16 114/76 02/26/20 04:31 121 H 17 02/26/20 04:30 100 H 18 118/80 02/26/20 04:01 110 H 16 02/26/20 04:00 108 H 16 116/75 02/26/20 03:31 115 H 17 02/26/20 03:30 115 H 16 129/80 02/26/20 03:15 108 H 17 02/26/20 03:00 110 H 16 113/75 02/26/20 02:34 109 H 16 02/26/20 02:33 105 H 16 123/75 02/26/20 02:30 104 H 15 02/26/20 01:02 106 H 15 127/87 02/26/20 00:54 36.9 C 121 H 18 119/81 Pulse Ox 02/26/20 07:16 98 02/26/20 05:02 97 02/26/20 04:31 96 02/26/20 04:30 96 02/26/20 04:01 95 02/26/20 04:00 97 02/26/20 03:31 98 02/26/20 03:30 97 02/26/20 03:15 98 02/26/20 03:00 98 02/26/20 02:34 100 02/26/20 02:33 100 02/26/20 02:30 100 02/26/20 01:02 98 02/26/20 00:54 100 Laboratory Results 02/26/20 02/26/20 02/26/20 Range/Units 06:57 06:57 02:20 WBC 9.92 (4.8-10.8) K/uL RBC 2.60 L (4.2-5.4) M/uL Hgb 7.0 L (12.0-16.0) g/dL Hct 23.1 L (37-47) % MCV 88.8 (80-100) fL MCH 26.9 (25-34) pg MCHC 30.3 L (32-36) g/dL RDW Std Deviation 48.6 H (36.4-46.3) fL RDW Coeff of Elie 15.0 H (11.5-14.5) % Plt Count 436 H (130-400) K/uL MPV 8.2 (7.4-10.4) fL Immature Gran % (Auto) 4.3 % Neut % (Auto) 73.2 % Lymph % (Auto) 12.6 % [place] % (Auto) 9.7 % Eos % (Auto) 0.1 % Baso % (Auto) 0.1 % Neut # (Auto) 7.26 H (1.4-6.5) K/uL Lymph # (Auto) 1.25 (1.2-3.4) K/uL [place] # (Auto) 0.96 H (0.11-0.59) K/uL Eos # (Auto) 0.01 (0-0.5) K/uL Baso # (Auto) 0.01 (0-0.2) K/uL Immature Gran # (Auto) 0.43 H (0.00-0.02) K/uL Absolute Nucleated RBC 0.09 H (0-0) K/uL Nucleated RBC % (auto) 0.9 % Neutrophils % (Manual) % Lymphocytes % (Manual) % Monocytes % (Manual) % Basophils % (Manual) % Metamyelocytes % (Man) % Neutrophils # (Manual) (1.4-6.5) K/uL Total Absolute Neuts (1.4-6.5) K/uL Lymphocytes # (Manual) (1.2-3.4) K/uL Total Abs Lymphocytes (1.2-3.4) K/uL Monocytes # (Manual) (0.11-0.59) K/uL Basophils # (Manual) (0-0.2) K/uL Metamyelocytes # (Man) (0-0) K/uL Toxic Granulation 1+ Toxic Vacuolation 1+ Dohle Bodies 1+ Polychromasia 1+ Tear Drop Cells Sodium 142 (136-145) mmol/L Potassium 4.0 (3.5-5.1) mmol/L Chloride 111 H (98-107) mmol/L Carbon Dioxide 25 (21-32) mmol/L Anion Gap 6.0 (3-11) BUN 7 (7-18) mg/dl Creatinine 0.70 (0.6-1.2) mg/dl Est Cr Clr Drug Dosing 120.2 Est GFR ( Amer) 131.9 Est GFR (Non-Af Amer) 113.8 BUN/Creatinine Ratio 10.6 (10-20) Glucose 147 H (70-99) mg/dl Calcium 7.5 L (8.5-10.1) mg/dl Magnesium 1.7 L (1.8-2.4) mg/dl Total Bilirubin (0.2-1) mg/dl AST (15-37) U/L ALT (12-78) U/L Alkaline Phosphatase (45-117) U/L Total Protein (6.4-8.2) gm/dl Albumin (3.4-5.0) gm/dl Globulin (2.5-4.0) gm/dl Albumin/Globulin Ratio (0.9-2) Lipase (73-393) U/L Urine Color Urine Appearance (Clear) Urine pH (4.5-7.5) Ur Specific [place] (1.000-1.030) Urine Protein (Negative) Urine Glucose (UA) (Negative) Urine Ketones (Negative) Urine Blood (Negative) Urine Nitrite (Negative) Urine Bilirubin (Negative) Urine Urobilinogen (Negative) Ur Leukocyte Esterase (Negative) Urine WBC (Auto) (0-5) /hpf Urine RBC (Auto) (0-4) /hpf U Hyaline Cast (Auto) (0-5) /lpf U Epithel Cells (Auto) (0-5) /lpf Urine Bacteria (Auto) (Negative) POC Ur Test (NEG) Stl C. diff Tox B Gene (Neg) Blood Type A Negative Antibody Screen NEGATIVE 02/26/20 02/26/20 02/26/20 Range/Units 02:00 02:00 02:00 WBC (4.8-10.8) K/uL RBC (4.2-5.4) M/uL Hgb (12.0-16.0) g/dL Hct (37-47) % MCV (80-100) fL MCH (25-34) pg MCHC (32-36) g/dL RDW Std Deviation (36.4-46.3) fL RDW Coeff of Elie (11.5-14.5) % Plt Count (130-400) K/uL MPV (7.4-10.4) fL Immature Gran % (Auto) % Neut % (Auto) % Lymph % (Auto) % [place] % (Auto) % Eos % (Auto) % Baso % (Auto) % Neut # (Auto) (1.4-6.5) K/uL Lymph # (Auto) (1.2-3.4) K/uL [place] # (Auto) (0.11-0.59) K/uL Eos # (Auto) (0-0.5) K/uL Baso # (Auto) (0-0.2) K/uL Immature Gran # (Auto) (0.00-0.02) K/uL Absolute Nucleated RBC (0-0) K/uL Nucleated RBC % (auto) % Neutrophils % (Manual) % Lymphocytes % (Manual) % Monocytes % (Manual) % Basophils % (Manual) % Metamyelocytes % (Man) % Neutrophils # (Manual) (1.4-6.5) K/uL Total Absolute Neuts (1.4-6.5) K/uL Lymphocytes # (Manual) (1.2-3.4) K/uL Total Abs Lymphocytes (1.2-3.4) K/uL Monocytes # (Manual) (0.11-0.59) K/uL Basophils # (Manual) (0-0.2) K/uL Metamyelocytes # (Man) (0-0) K/uL Toxic Granulation Toxic Vacuolation Dohle Bodies Polychromasia Tear Drop Cells Sodium (136-145) mmol/L Potassium (3.5-5.1) mmol/L Chloride (98-107) mmol/L Carbon Dioxide (21-32) mmol/L Anion Gap (3-11) BUN (7-18) mg/dl Creatinine (0.6-1.2) mg/dl Est Cr Clr Drug Dosing Est GFR ( Amer) Est GFR (Non-Af Amer) BUN/Creatinine Ratio (10-20) Glucose (70-99) mg/dl Calcium (8.5-10.1) mg/dl Magnesium (1.8-2.4) mg/dl Total Bilirubin (0.2-1) mg/dl AST (15-37) U/L ALT (12-78) U/L Alkaline Phosphatase (45-117) U/L Total Protein (6.4-8.2) gm/dl Albumin (3.4-5.0) gm/dl Globulin (2.5-4.0) gm/dl Albumin/Globulin Ratio (0.9-2) Lipase (73-393) U/L Urine Color Yellow Urine Appearance Clear (Clear) Urine pH 7.0 (4.5-7.5) Ur Specific [place] 1.021 (1.000-1.030) Urine Protein Negative (Negative) Urine Glucose (UA) Negative (Negative) Urine Ketones Trace H (Negative) Urine Blood 2+ H (Negative) Urine Nitrite Negative (Negative) Urine Bilirubin Negative (Negative) Urine Urobilinogen Negative (Negative) Ur Leukocyte Esterase Negative (Negative) Urine WBC (Auto) 1-5 (0-5) /hpf Urine RBC (Auto) 10-30 H (0-4) /hpf U Hyaline Cast (Auto) 1-5 (0-5) /lpf U Epithel Cells (Auto) 20-30 H (0-5) /lpf Urine Bacteria (Auto) 1+ H (Negative) POC Ur Test NEG (NEG) Stl C. diff Tox B Gene Negative Cdiff Gene (Neg) Blood Type Antibody Screen 02/26/20 02/26/20 Range/Units 01:17 01:17 WBC 14.40 H (4.8-10.8) K/uL RBC 2.96 L (4.2-5.4) M/uL Hgb 7.9 L (12.0-16.0) g/dL Hct 25.9 L (37-47) % MCV 87.5 (80-100) fL MCH 26.7 (25-34) pg MCHC 30.5 L (32-36) g/dL RDW Std Deviation 47.0 H (36.4-46.3) fL RDW Coeff of Elie 14.9 H (11.5-14.5) % Plt Count 496 H (130-400) K/uL MPV 9.0 (7.4-10.4) fL Immature Gran % (Auto) % Neut % (Auto) % Lymph % (Auto) % [place] % (Auto) % Eos % (Auto) % Baso % (Auto) % Neut # (Auto) (1.4-6.5) K/uL Lymph # (Auto) (1.2-3.4) K/uL [place] # (Auto) (0.11-0.59) K/uL Eos # (Auto) (0-0.5) K/uL Baso # (Auto) (0-0.2) K/uL Immature Gran # (Auto) (0.00-0.02) K/uL Absolute Nucleated RBC 0.21 H (0-0) K/uL Nucleated RBC % (auto) 1.5 % Neutrophils % (Manual) 68.9 % Lymphocytes % (Manual) 19.0 % Monocytes % (Manual) 10.3 % Basophils % (Manual) 0.9 % Metamyelocytes % (Man) 0.9 % Neutrophils # (Manual) 9.92 H (1.4-6.5) K/uL Total Absolute Neuts 9.92 H (1.4-6.5) K/uL Lymphocytes # (Manual) 2.74 (1.2-3.4) K/uL Total Abs Lymphocytes 2.74 (1.2-3.4) K/uL Monocytes # (Manual) 1.48 H (0.11-0.59) K/uL Basophils # (Manual) 0.13 (0-0.2) K/uL Metamyelocytes # (Man) 0.13 H (0-0) K/uL Toxic Granulation Toxic Vacuolation Dohle Bodies Polychromasia 1+ Tear Drop Cells 1+ Sodium 143 (136-145) mmol/L Potassium 3.5 (3.5-5.1) mmol/L Chloride 109 H (98-107) mmol/L Carbon Dioxide 25 (21-32) mmol/L Anion Gap 9.0 (3-11) BUN 9 (7-18) mg/dl Creatinine 0.78 (0.6-1.2) mg/dl Est Cr Clr Drug Dosing Not Reportable Est GFR ( Amer) 115.8 Est GFR (Non-Af Amer) 99.9 BUN/Creatinine Ratio 12.0 (10-20) Glucose 82 (70-99) mg/dl Calcium 8.2 L (8.5-10.1) mg/dl Magnesium (1.8-2.4) mg/dl Total Bilirubin 0.2 (0.2-1) mg/dl AST 6 L (15-37) U/L ALT 13 (12-78) U/L Alkaline Phosphatase 45 (45-117) U/L Total Protein 6.9 (6.4-8.2) gm/dl Albumin 2.4 L (3.4-5.0) gm/dl Globulin 4.5 H (2.5-4.0) gm/dl Albumin/Globulin Ratio 0.5 L (0.9-2) Lipase 70 L (73-393) U/L Urine Color Urine Appearance (Clear) Urine pH (4.5-7.5) Ur Specific [place] (1.000-1.030) Urine Protein (Negative) Urine Glucose (UA) (Negative) Urine Ketones (Negative) Urine Blood (Negative) Urine Nitrite (Negative) Urine Bilirubin (Negative) Urine Urobilinogen (Negative) Ur Leukocyte Esterase (Negative) Urine WBC (Auto) (0-5) /hpf Urine RBC (Auto) (0-4) /hpf U Hyaline Cast (Auto) (0-5) /lpf U Epithel Cells (Auto) (0-5) /lpf Urine Bacteria (Auto) (Negative) POC Ur Test (NEG) Stl C. diff Tox B Gene (Neg) Blood Type Antibody Screen (1) Crohns disease Digestive disease complication type: unspecified complication Gastrointestinal tract location: unspecified location Qualified Code(s): K50.919 - Crohn's disease, unspecified, with unspecified complications
--- NOTE | 2020-02-26 09:42 | Hospitalist Progress Note ---
Date of Service February 26, 2020 Assessment & Plan (1) Crohns disease: Crohn disease flare Continue iv methyl prednisone Follow up GI recommendations Start clears and advance as tolerated Pain control Antiemetics as needed (2) Acute blood loss anemia: (3) Iron deficiency anemia: Hb is 7 this AM Acute blood loss anemia from bloody diarrhea from above Reported recent IV iron Monitor Hb and transfuse prn for Hb<7 (4) Depression: Anxiety Continue home citalopram (5) DVT prophylaxis: SCDs Admission and Anticipated Discharge Date Admission Date: February 26, 2020 Subjective Patient seen and examined Reports nausea is resolved Still has abd pain but improved, currently 5/10 Reported last bowel movement this AM was not bloody but still watery Denied any vomiting today. No fevers, chills No cough, chest pain, shortness of breath No hematuria, dysuria, urgency, incontinence Physical Exam Constitutional: + well hydrated; no acute distress Eyes: PERRL Pale conjunctiva ENMT: external ear and nose normal, oropharynx normal Respiratory: normal respiratory effort, lungs clear to auscultation Cardiovascular: RRR, no murmur, no edema Gastrointestinal (Abdomen): Inspection/Auscultation: abdomen normal to inspection and normal bowel sounds; abdomen not distended Percussion/Palpation: + abdomen tender (Mild) and abdomen soft; no guarding and abdomen not rigid Musculoskeletal: no cyanosis or clubbing, extremities motor strength 5/5 Neurologic: PERRL, EOMI, accommodation nl, no face palsy, no dysarthria Psychiatric: A+Ox3, euthymic affect Results & Data Results & Data ([facility]) Vital Signs (Past 12 Hours) Vital Signs Temp Pulse Pulse Resp BP BP BP 02/26/20 07:16 36.6 C 104 H 16 105/69 02/26/20 05:02 36.9 C 89 16 114/76 02/26/20 04:31 121 H 17 02/26/20 04:30 100 H 18 118/80 02/26/20 04:01 110 H 16 02/26/20 04:00 108 H 16 116/75 02/26/20 03:31 115 H 17 02/26/20 03:30 115 H 16 129/80 02/26/20 03:15 108 H 17 02/26/20 03:00 110 H 16 113/75 02/26/20 02:34 109 H 16 02/26/20 02:33 105 H 16 123/75 02/26/20 02:30 104 H 15 02/26/20 01:02 106 H 15 127/87 02/26/20 00:54 36.9 C 121 H 18 119/81 Pulse Ox 02/26/20 07:16 98 02/26/20 05:02 97 02/26/20 04:31 96 02/26/20 04:30 96 02/26/20 04:01 95 02/26/20 04:00 97 02/26/20 03:31 98 02/26/20 03:30 97 02/26/20 03:15 98 02/26/20 03:00 98 02/26/20 02:34 100 02/26/20 02:33 100 02/26/20 02:30 100 02/26/20 01:02 98 02/26/20 00:54 100 Laboratory Results Laboratory Results - last 24 hr 02/26/20 02/26/20 02/26/20 01:17 01:17 02:00 WBC 14.40 H RBC 2.96 L Hgb 7.9 L Hct 25.9 L MCV 87.5 MCH 26.7 MCHC 30.5 L RDW Std Deviation 47.0 H RDW Coeff of Elie 14.9 H Plt Count 496 H MPV 9.0 Immature Gran % (Auto) Neut % (Auto) Lymph % (Auto) [place] % (Auto) Eos % (Auto) Baso % (Auto) Neut # (Auto) Lymph # (Auto) [place] # (Auto) Eos # (Auto) Baso # (Auto) Immature Gran # (Auto) Absolute Nucleated RBC 0.21 H Nucleated RBC % (auto) 1.5 Neutrophils % (Manual) 68.9 Lymphocytes % (Manual) 19.0 Monocytes % (Manual) 10.3 Basophils % (Manual) 0.9 Metamyelocytes % (Man) 0.9 Neutrophils # (Manual) 9.92 H Total Absolute Neuts 9.92 H Lymphocytes # (Manual) 2.74 Total Abs Lymphocytes 2.74 Monocytes # (Manual) 1.48 H Basophils # (Manual) 0.13 Metamyelocytes # (Man) 0.13 H Toxic Granulation Toxic Vacuolation Dohle Bodies Polychromasia 1+ Tear Drop Cells 1+ Sodium 143 Potassium 3.5 Chloride 109 H Carbon Dioxide 25 Anion Gap 9.0 BUN 9 Creatinine 0.78 Est Cr Clr Drug Dosing Not Reportable Est GFR ( Amer) 115.8 Est GFR (Non-Af Amer) 99.9 BUN/Creatinine Ratio 12.0 Glucose 82 Calcium 8.2 L Magnesium Total Bilirubin 0.2 AST 6 L ALT 13 Alkaline Phosphatase 45 Total Protein 6.9 Albumin 2.4 L Globulin 4.5 H Albumin/Globulin Ratio 0.5 L Lipase 70 L Urine Color Yellow Urine Appearance Clear Urine pH 7.0 Ur Specific [place] 1.021 Urine Protein Negative Urine Glucose (UA) Negative Urine Ketones Trace H Urine Blood 2+ H Urine Nitrite Negative Urine Bilirubin Negative Urine Urobilinogen Negative Ur Leukocyte Esterase Negative Urine WBC (Auto) 1-5 Urine RBC (Auto) 10-30 H U Hyaline Cast (Auto) 1-5 U Epithel Cells (Auto) 20-30 H Urine Bacteria (Auto) 1+ H POC Ur Test Stl C. diff Tox B Gene Blood Type Antibody Screen 02/26/20 02/26/20 02/26/20 02:00 02:00 02:20 WBC RBC Hgb Hct MCV MCH MCHC RDW Std Deviation RDW Coeff of Elie Plt Count MPV Immature Gran % (Auto) Neut % (Auto) Lymph % (Auto) [place] % (Auto) Eos % (Auto) Baso % (Auto) Neut # (Auto) Lymph # (Auto) [place] # (Auto) Eos # (Auto) Baso # (Auto) Immature Gran # (Auto) Absolute Nucleated RBC Nucleated RBC % (auto) Neutrophils % (Manual) Lymphocytes % (Manual) Monocytes % (Manual) Basophils % (Manual) Metamyelocytes % (Man) Neutrophils # (Manual) Total Absolute Neuts Lymphocytes # (Manual) Total Abs Lymphocytes Monocytes # (Manual) Basophils # (Manual) Metamyelocytes # (Man) Toxic Granulation Toxic Vacuolation Dohle Bodies Polychromasia Tear Drop Cells Sodium Potassium Chloride Carbon Dioxide Anion Gap BUN Creatinine Est Cr Clr Drug Dosing Est GFR ( Amer) Est GFR (Non-Af Amer) BUN/Creatinine Ratio Glucose Calcium Magnesium Total Bilirubin AST ALT Alkaline Phosphatase Total Protein Albumin Globulin Albumin/Globulin Ratio Lipase Urine Color Urine Appearance Urine pH Ur Specific [place] Urine Protein Urine Glucose (UA) Urine Ketones Urine Blood Urine Nitrite Urine Bilirubin Urine Urobilinogen Ur Leukocyte Esterase Urine WBC (Auto) Urine RBC (Auto) U Hyaline Cast (Auto) U Epithel Cells (Auto) Urine Bacteria (Auto) POC Ur Test NEG Stl C. diff Tox B Gene Negative Cdiff Gene Blood Type A Negative Antibody Screen NEGATIVE 02/26/20 02/26/20 06:57 06:57 WBC 9.92 RBC 2.60 L Hgb 7.0 L Hct 23.1 L MCV 88.8 MCH 26.9 MCHC 30.3 L RDW Std Deviation 48.6 H RDW Coeff of Elie 15.0 H Plt Count 436 H MPV 8.2 Immature Gran % (Auto) 4.3 Neut % (Auto) 73.2 Lymph % (Auto) 12.6 [place] % (Auto) 9.7 Eos % (Auto) 0.1 Baso % (Auto) 0.1 Neut # (Auto) 7.26 H Lymph # (Auto) 1.25 [place] # (Auto) 0.96 H Eos # (Auto) 0.01 Baso # (Auto) 0.01 Immature Gran # (Auto) 0.43 H Absolute Nucleated RBC 0.09 H Nucleated RBC % (auto) 0.9 Neutrophils % (Manual) Lymphocytes % (Manual) Monocytes % (Manual) Basophils % (Manual) Metamyelocytes % (Man) Neutrophils # (Manual) Total Absolute Neuts Lymphocytes # (Manual) Total Abs Lymphocytes Monocytes # (Manual) Basophils # (Manual) Metamyelocytes # (Man) Toxic Granulation 1+ Toxic Vacuolation 1+ Dohle Bodies 1+ Polychromasia 1+ Tear Drop Cells Sodium 142 Potassium 4.0 Chloride 111 H Carbon Dioxide 25 Anion Gap 6.0 BUN 7 Creatinine 0.70 Est Cr Clr Drug Dosing 120.2 Est GFR ( Amer) 131.9 Est GFR (Non-Af Amer) 113.8 BUN/Creatinine Ratio 10.6 Glucose 147 H Calcium 7.5 L Magnesium 1.7 L Total Bilirubin AST ALT Alkaline Phosphatase Total Protein Albumin Globulin Albumin/Globulin Ratio Lipase Urine Color Urine Appearance Urine pH Ur Specific [place] Urine Protein Urine Glucose (UA) Urine Ketones Urine Blood Urine Nitrite Urine Bilirubin Urine Urobilinogen Ur Leukocyte Esterase Urine WBC (Auto) Urine RBC (Auto) U Hyaline Cast (Auto) U Epithel Cells (Auto) Urine Bacteria (Auto) POC Ur Test Stl C. diff Tox B Gene Blood Type Antibody Screen (1) Crohns disease Digestive disease complication type: unspecified complication Gastrointestinal tract location: unspecified location Qualified Code(s): K50.919 - Crohn's disease, unspecified, with unspecified complications
[2020-02-26 17:08] LABS: Hematocrit (blood only) 22.7 % (37-47); Hemoglobin 6.8 g/dL (12.0-16.0)
[2020-02-26] MEDS ORDERED: SODIUM CHLORIDE 0.9% 250 ML IV PRN (17:26)
[2020-02-26] MEDS: ONDANSETRON INJ 2 MG/ML 2 ML VIAL IV PRN (23:44)
[2020-02-27] MEDS: HYDROmorphone INJ 0.5 MG/0.5 ML SYR IV PRN ×5 (04:36→21:45)
[2020-02-27] MEDS: methylPREDNISolone 20 MG in SYRINGE 0 ML IV SCH ×3 (06:16→21:45)
[2020-02-27] MEDS: D5W AND NSS 1,000 ML IV SCH ×3 (06:16→21:45)
[2020-02-27] MEDS: ASCORBIC ACID 500 MG TAB PO SCH (08:11)
[2020-02-27] MEDS: MULTIVITAMIN TAB PO SCH (08:11)
[2020-02-27] MEDS: CITALOPRAM 20 MG TAB PO SCH (08:12)
[2020-02-27 08:53] LABS: Hematocrit (blood only) 26.4 % (37-47); Hemoglobin 8.2 g/dL (12.0-16.0); Mean Corpuscular Hemoglobin 26.9 pg (25-34); Mean Corpuscular Hgb Conc 31.1 g/dL (32-36); Mean Corpuscular Volume 86.6 fL (80-100); Mean Platelet Volume 8.4 fL (7.4-10.4); Nucleated RBC # (auto) 0.28 K/uL (0-0); Nucleated RBC % (auto) 1.9 %; Platelet Count 480 K/uL (130-400); RDW Coefficient of Variation 15.7 % (11.5-14.5); RDW Standard Deviation 49.3 fL (36.4-46.3); Red Blood Count 3.05 M/uL (4.2-5.4); White Blood Count 14.93 K/uL (4.8-10.8)
--- NOTE | 2020-02-27 09:19 | Gastroenterology Progress Note ---
Date of Service February 27, 2020 Assessment & Plan (1) Crohns disease: 34 year old female with celiac, Crohn's on Stelara who presents for failed outpatient management of suspected IBD flare w/ up to 10 bloody bowel movements daily. On arrival to the ED repeat stool studies were sent and negative to date. She was started on IV methylpred and made NPO and notes improvement of her pain She is afebrile, non-toxic on exam w/ stable vital signs. Her last BM was around 0500. Yesterday she had two brown loose stools, 1 bloody BM - Cdiff negative - Culture pending - Consider advancement to gluten free clear liquid diet today - Would continue IV methylpred 20 mg TID today - Will need transition to PO steroid taper tomorrow - Prednisone 40 mg daily x 2 weeks decreasing by 5 mg per week - Continue Stelara as ordered - Can trial Bentyl 10 mg three times daily if needed - Antiemetics PRN - Would limit narcotic analgesia - Will need OP follow up with Dr. Tabor and her IBD specialist in [place] - Can advance to full liquid, low fiber diet Will sign off. Thank you for allowing us to participate in the care of this patient. Please call with any acute changes, questions or concerns. Please see addendum below with additional recommendation from my supervising physician. Admission and Anticipated Discharge Date Admission Date: February 26, 2020 Supervising Physician Co-Signing Physician Notes I saw and evaluated the patient. She continues to note having small-volume hematochezia without any urgency or cramping today. Recommendations Continue with IV steroids If hematochezia persists will consider repeat colonoscopy to evaluate for evidence of CMV colitis Subjective S/P 1 unit RBC HGB this AM 8.2 Less frequent Had two brown stools yesterday Then one loose bloody stool this AM Pain unchanged Review of Systems Constitutional: no fever, no chills, no fatigue and no anorexia Respiratory: no cough, no dyspnea and no sputum production Cardiovascular: no chest pain, no radiating jaw, neck or arm pain and no dyspnea Gastrointestinal: + abdominal pain, + change in stools, + diarrhea/loose stools and + blood in stools; no change in bowel habits, no fecal incontinence and no melena Physical Exam Constitutional: WD/WN, vitals as above no acute distress and not ill appearing Neck: trachea midline Respiratory: normal respiratory effort, lungs clear to auscultation no respiratory distress Auscultation: no crackles, no rales and no rhonchi Cardiovascular: RRR, no murmur, no edema Extremities: no pedal edema Gastrointestinal (Abdomen): Percussion/Palpation: + abdomen tender and abdomen soft; no guarding, abdomen not rigid, no hernia, no abdominal mass and no ascites Skin: no rashes, warm and dry Results & Data ([facility]) Vital Signs (Past 12 Hours) Vital Signs Temp Pulse Pulse Resp BP BP Pulse Ox 02/27/20 07:06 36.8 C 89 16 109/74 98 02/26/20 23:09 36.8 C 88 17 113/75 98 02/26/20 22:05 36.7 C 83 18 117/81 98 02/26/20 22:00 36.5 C 80 20 114/74 98 02/26/20 21:30 36.7 C 83 20 110/71 98 (1) Crohns disease Digestive disease complication type: with rectal bleeding Gastrointestinal tract location: unspecified location Qualified Code(s): K50.911 - Crohn's disease, unspecified, with rectal bleeding
[2020-02-27 09:31] LABS: BUN Creatinine Ratio 6.1 (10-20); Calcium 8.4 mg/dl (8.5-10.1); Creatinine Clr Calc Pharmacy 106.5 ml/min; Est GFR (Non-African American) 98.4; Potassium 4.1 mmol/L (3.5-5.1)
--- NOTE | 2020-02-27 11:46 | Hospitalist Progress Note ---
Date of Service February 27, 2020 Assessment & Plan (1) Crohns disease: Crohn disease flare Continue iv methyl prednisone for today Plan to switch to oral by tomorrow Follow up GI recommendations Tolerating clears. Advance diet as tolerated Pain control Antiemetics as needed (2) Acute blood loss anemia: (3) Iron deficiency anemia: Hb is 7 yessterday. Dropped to 6.8 Acute blood loss anemia from bloody diarrhea from above Got 1 PRBC yesterday. Hb is 8.2 this AM Give one dose of iv iron (4) Depression: Anxiety Continue home citalopram (5) DVT prophylaxis: SCDs Admission and Anticipated Discharge Date Admission Date: February 26, 2020 Subjective Patient seen and examined Reports she still gets intermittent severe abd pain but less frequent Reported 2 bloody bowel movement overnight No nausea, vomiting No dizziness, shortness of breath, dyspnea on exertion, palpitation, chest pain, cough or leg swelling Physical Exam Constitutional: + well hydrated; no acute distress Eyes: PERRL ENMT: external ear and nose normal, oropharynx normal Respiratory: normal respiratory effort, lungs clear to auscultation Cardiovascular: RRR, no murmur, no edema Gastrointestinal (Abdomen): Inspection/Auscultation: abdomen normal to inspection and normal bowel sounds; abdomen not distended Percussion/Palpation: + abdomen tender (Mild) and abdomen soft; no guarding and abdomen not rigid Musculoskeletal: no cyanosis or clubbing, extremities motor strength 5/5 Neurologic: PERRL, EOMI, accommodation nl, no face palsy, no dysarthria Psychiatric: A+Ox3, euthymic affect Results & Data Results & Data ([facility]) Vital Signs (Past 12 Hours) Vital Signs Temp Pulse Resp BP Pulse Ox 02/27/20 07:06 36.8 C 89 16 109/74 98 Laboratory Results Laboratory Results - last 24 hr 02/26/20 02/26/20 02/27/20 02:20 15:10 08:15 WBC 14.93 H RBC 3.05 L Hgb 6.8 L* 8.2 L Hct 22.7 L 26.4 L MCV 86.6 MCH 26.9 MCHC 31.1 L RDW Std Deviation 49.3 H RDW Coeff of Elie 15.7 H Plt Count 480 H MPV 8.4 Absolute Nucleated RBC 0.28 H Nucleated RBC % (auto) 1.9 Sodium Potassium Chloride Carbon Dioxide Anion Gap BUN Creatinine Est Cr Clr Drug Dosing Est GFR ( Amer) Est GFR (Non-Af Amer) BUN/Creatinine Ratio Glucose Calcium Blood Type A Negative Antibody Screen NEGATIVE Crossmatch See Detail 02/27/20 08:15 WBC RBC Hgb Hct MCV MCH MCHC RDW Std Deviation RDW Coeff of Elie Plt Count MPV Absolute Nucleated RBC Nucleated RBC % (auto) Sodium 140 Potassium 4.1 Chloride 108 H Carbon Dioxide 26 Anion Gap 6.0 BUN 5 L Creatinine 0.79 Est Cr Clr Drug Dosing 106.5 Est GFR ( Amer) 114.0 Est GFR (Non-Af Amer) 98.4 BUN/Creatinine Ratio 6.1 L Glucose 142 H Calcium 8.4 L Blood Type Antibody Screen Crossmatch (1) Crohns disease Digestive disease complication type: with rectal bleeding Gastrointestinal tract location: unspecified location Qualified Code(s): K50.911 - Crohn's disease, unspecified, with rectal bleeding
[2020-02-27] MEDS ORDERED: IRON SUCROSE 200 MG in 0.9 % SODIUM CHLORIDE 100 ML IV ONE (12:00)
[2020-02-28] MEDS: HYDROmorphone INJ 0.5 MG/0.5 ML SYR IV PRN ×4 (04:48→21:20)
[2020-02-28] MEDS: ONDANSETRON INJ 2 MG/ML 2 ML VIAL IV PRN (04:48)
[2020-02-28] MEDS: methylPREDNISolone 20 MG in SYRINGE 0 ML IV SCH (05:15)
[2020-02-28 06:19] LABS: Hematocrit (blood only) 24.8 % (37-47); Hemoglobin 7.7 g/dL (12.0-16.0); Mean Platelet Volume 9.1 fL (7.4-10.4); Nucleated RBC # (auto) 0.21 K/uL (0-0); Nucleated RBC % (auto) 1.5 %; Platelet Count 433 K/uL (130-400); RDW Coefficient of Variation 15.4 % (11.5-14.5); RDW Standard Deviation 48.4 fL (36.4-46.3); Red Blood Count 2.85 M/uL (4.2-5.4); White Blood Count 13.63 K/uL (4.8-10.8)
[2020-02-28 06:59] LABS: BUN Creatinine Ratio 9.5 (10-20); Calcium 8.2 mg/dl (8.5-10.1); Est GFR (African American) 138.1; Est GFR (Non-African American) 119.1
--- NOTE | 2020-02-28 08:30 | Gastroenterology Progress Note ---
Date of Service February 28, 2020 Assessment & Plan (1) Crohns disease: 34 year old female with celiac, Crohn's on Stelara who presents for failed outpatient management of suspected IBD flare w/ up to 10 bloody bowel movements daily. On arrival to the ED repeat stool studies were sent and negative to date. She was started on IV methylpred and made NPO and notes improvement of her pain She is afebrile, non-toxic on exam w/ stable vital signs. Her last BM was around 0500. Yesterday she had 3 loose bloody stools in the past 24 ours. She is tolerating PO intake and will need to be transitioned to PO steroids today. - Gluten free clear liquid diet today - Prednisone 40 mg daily x 2 weeks decreasing by 5 mg per week - Continue Stelara as ordered - Can trial Bentyl 10 mg three times daily if needed - Antiemetics PRN - Would limit narcotic analgesia - Will need OP follow up with Dr. Tabor and her IBD specialist in [place] Will sign off. Thank you for allowing us to participate in the care of this patient. Please call with any acute changes, questions or concerns. Please see addendum below with additional recommendation from my supervising physician. Admission and Anticipated Discharge Date Admission Date: February 26, 2020 Supervising Physician Co-Signing Physician Notes I saw and evaluated the patient. She does note she is starting to feel somewhat better although she still does have small-volume hematochezia. She describes having 3 bloody bowel movements from 8 yesterday. Recommendations Transition to oral steroids Advance diet as tolerated Bentyl 10 mg up to 3 times daily for discomfort Subjective Pt was seen and evaluated, chart reviewed. Feeling better. Only 3 BMs since evaluated yesterday One of which was overnight. All stools had some blood present. Abd pain has intermittent. Is wanting to go home but is concerned about her pain. Tolerated advancement of her diet Review of Systems Constitutional: no fever, no chills, no fatigue and no anorexia Respiratory: no cough, no chest congestion, no dyspnea and no dyspnea on exertion Cardiovascular: no chest pain, no chest pain at rest, no dyspnea and no orthopnea Gastrointestinal: + abdominal pain, + diarrhea/loose stools and + blood in stools; no dysphagia, no fecal incontinence and no melena Physical Exam Constitutional: WD/WN, vitals as above well developed and well nourished; no acute distress and not ill appearing Neck: trachea midline Respiratory: normal respiratory effort, lungs clear to auscultation no respiratory distress Auscultation: no crackles, no rales, no rhonchi and no wheezes Cardiovascular: RRR, no murmur, no edema Extremities: no pedal edema Gastrointestinal (Abdomen): Inspection/Auscultation: abdomen normal to inspection and normal bowel sounds Percussion/Palpation: + abdomen tender and abdomen soft; no guarding, abdomen not rigid, no hernia, no abdominal mass and no ascites Skin: no rashes, warm and dry Results & Data ([facility]) Vital Signs (Past 12 Hours) Vital Signs Temp Pulse Resp BP Pulse Ox 02/28/20 07:49 36.7 C 97 H 18 99/66 L 96 02/27/20 22:00 37.0 C 88 20 106/68 96 (1) Crohns disease Digestive disease complication type: with rectal bleeding Gastrointestinal tract location: unspecified location Qualified Code(s): K50.911 - Crohn's disease, unspecified, with rectal bleeding
[2020-02-28] MEDS: ASCORBIC ACID 500 MG TAB PO SCH (09:20)
[2020-02-28] MEDS: MULTIVITAMIN TAB PO SCH (09:20)
[2020-02-28] MEDS: CITALOPRAM 20 MG TAB PO SCH (09:20)
[2020-02-28] MEDS: D5W AND NSS 1,000 ML IV SCH (10:22)
--- NOTE | 2020-02-28 13:12 | Hospitalist Progress Note ---
Date of Service February 28, 2020 Assessment & Plan (1) Crohns disease: Tolerating food with some post-prandial pain still present but improving. Cont supportive care for pain control including PO percocet as a way to get her home. Solumedrol switched to PO prednisone to complete steroid taper prescribed by GI team. Cont bentyl FLORECITAN, Loreta, and will clarify the use of mesalamine at this time. (2) Acute blood loss anemia: 2/2 hematochezia, which is improved. Given 1 unit PRBC with expected response. Currently asymptomatic. Repeat CBC in am. (3) Iron deficiency anemia: 2/2 acute blood loss semi-chronic (flare symptoms worsening since november 2019). She was given an infusion of IV iron this hospitalization. (4) Depression: stable, cont home citalopram. (5) DVT prophylaxis: SCDs/ambulation Full Dispo-home in am so long as pain is controlled with oral medications. Evon Palafox [facility] and Anticipated Discharge Date Admission Date: February 26, 2020 Subjective still reports hematochezia one episode overnight, compared to 4 times epr night, this is improved urgency to stool is improved, and so has pain still required some IV dilaudid this am she is conscious of the need to avoid narcotic analgesia as much as able switching to PO pred today has not been using mesalamine rectal suppositories here but was using them at home. Review of Systems Review of Systems: All systems reviewed & are unremarkable except as noted in Subjective Physical Exam Physical Exam: CONSTITUTIONAL: WNWD, vitals as above, generally well- appearing EYES: normal conjunctivae, no scleral icterus ENT: external ear and nose normal, oropharynx clear, MMM RESPIRATORY: clear to auscultation bilaterally, no crackles, rales or wheezes, normal respiratory effort CARDIOVASCULAR: regular rate and rhythm, S1 and 2 heard without murmurs, gallops or rubs, no JVD, no peripheral edema GASTROINTESTINAL: normal bowel sounds, soft, nontender, nondistended, no guarding. MUSCULOSKELETAL: strength 5/5 throughout, head is normocephalic and atraumatic SKIN: warm and dry, no rashes NEUROLOGIC: CN 2-12 grossly intact, normal cognition, normal speech, no gross focal deficits. PSYCHIATRIC: alert cooperative and oriented to person, place and time. Results & Data Results & Data ([facility]) Vital Signs (Past 12 Hours) Vital Signs Temp Pulse Resp BP Pulse Ox 02/28/20 07:49 36.7 C 97 H 18 99/66 L 96 Laboratory Results Short CBC 02/28/20 Range/Units 05:47 WBC 13.63 H (4.8-10.8) K/uL Hgb 7.7 L (12.0-16.0) g/dL Hct 24.8 L (37-47) % Plt Count 433 H (130-400) K/uL BMP 02/28/20 05:47 Sodium 141 Potassium 4.0 Chloride 109 H Carbon Dioxide 27 BUN 6 L Creatinine 0.61 Glucose 128 H Calcium 8.2 L Medications Administered Current Inpatient Medications Acetaminophen (Tylenol) 650 mg PO Q4H PRN PRN Reason: pain/fever Stop: 03/27/20 05:06 Ascorbic Acid (Vitamin C) 1,000 mg PO DAILY DUANE Stop: 03/27/20 08:59 Last Admin: 02/28/20 09:20 Dose: 1,000 mg Documented by: Citalopram Hydrobromide (Celexa) 10 mg PO DAILY DUANE Stop: 03/27/20 08:59 Last Admin: 02/28/20 09:20 Dose: 10 mg Documented by: Dicyclomine HCl (Bentyl) 10 mg PO TID PRN PRN Reason: Pain Stop: 03/27/20 05:06 Hydromorphone HCl (Dilaudid) 0.5 mg IV Q3H PRN PRN Reason: Pain Stop: 03/11/20 05:06 Last Admin: 02/28/20 10:17 Dose: 0.5 mg Documented by: Lorazepam (Ativan) 1 mg PO HS PRN PRN Reason: Anxiety Stop: 03/27/20 05:23 Miscellaneous (Order Awaiting Action) 1 ea N/A QS DUANE Stop: 03/27/20 07:59 Last Admin: 02/28/20 09:20 Dose: Not Given Documented by: Multivitamins (Multivitamin Tab) 1 tab PO DAILY DUANE Stop: 03/27/20 08:59 Last Admin: 02/28/20 09:20 Dose: 1 tab Documented by: Ondansetron HCl (Zofran) 4 mg IV Q6H PRN PRN Reason: Nausea Stop: 03/27/20 05:06 Last Admin: 02/28/20 04:48 Dose: 4 mg Documented by: Oxycodone/Acetaminophen (Percocet 5mg/325mg) 1 - 2 tab PO Q6H PRN PRN Reason: Pain Stop: 03/13/20 13:00 Prednisone (Prednisone) 40 mg PO DAILY DUANE Stop: 03/29/20 13:14 (1) Crohns disease Digestive disease complication type: with rectal bleeding Gastrointestinal tract location: unspecified location Qualified Code(s): K50.911 - Crohn's disease, unspecified, with rectal bleeding
[2020-02-28] MEDS: predniSONE 20 MG TAB PO SCH (14:31)
[2020-02-28] MEDS: OXYCODONE/ACETAMINOPHEN 5mg/325mg TAB PO PRN (16:58)
[2020-02-29] MEDS: OXYCODONE/ACETAMINOPHEN 5mg/325mg TAB PO PRN ×3 (00:05→07:56)
[2020-02-29 06:24] LABS: Hematocrit (blood only) 25.9 % (37-47); Hemoglobin 7.8 g/dL (12.0-16.0); Mean Corpuscular Hemoglobin 26.4 pg (25-34); Mean Corpuscular Hgb Conc 30.1 g/dL (32-36); Mean Corpuscular Volume 87.5 fL (80-100); Mean Platelet Volume 8.5 fL (7.4-10.4); Nucleated RBC # (auto) 0.39 K/uL (0-0); Nucleated RBC % (auto) 2.9 %; Platelet Count 452 K/uL (130-400); RDW Coefficient of Variation 15.2 % (11.5-14.5); RDW Standard Deviation 47.6 fL (36.4-46.3); Red Blood Count 2.96 M/uL (4.2-5.4); White Blood Count 13.63 K/uL (4.8-10.8)
[2020-02-29] MEDS: ONDANSETRON INJ 2 MG/ML 2 ML VIAL IV PRN (06:43)
[2020-02-29] MEDS: HYDROmorphone INJ 0.5 MG/0.5 ML SYR IV PRN (06:49)
[2020-02-29] MEDS: MULTIVITAMIN TAB PO SCH (07:53)
[2020-02-29] MEDS: CITALOPRAM 20 MG TAB PO SCH (07:53)
[2020-02-29] MEDS: ASCORBIC ACID 500 MG TAB PO SCH (07:53)
[2020-02-29] MEDS: predniSONE 20 MG TAB PO SCH (07:54)
--- NOTE | 2020-02-29 08:54 | Anesthesiology Consultation ---
Date of Service February 29, 2020 Assessment & Plan (1) Encounter for pre-operative examination: Chart Review Chart Review: Acceptable Risk for Surgery Consults Requested none ASA ASA3 Proposed Anesthesia Anesthesia Type: MAC Risk / Benefits Reviewed With: PT / POA / Parent / Guardian, Accepts Plan and Informed Consent Obtained History Surgery Operation Date: 02/29/20 16:40 Proposed Procedures p Flexible Sigmoidoscopy Dr Marcial Ceja Height/Weight Height: 5 ft 6 in Weight: 77.6 kg Allergies Allergy/AdvReac Type Severity Reaction Status Date / Time No Known Allergies Allergy Mild Verified 09/12/19 14:46 Medications Home Medications Medication Instructions Recorded Confirmed Last Taken levonorgestrel-ethinyl estrad 1 tab PO HS 05/09/19 02/26/20 02/24/20 [Ruby (28)] ascorbic acid (vitamin C) [Vitamin 1,000 mg PO DAILY 02/26/20 02/26/20 02/25/20 C] citalopram 10 mg PO DAILY 02/26/20 02/26/20 02/25/20 dicyclomine 10 mg PO TID PRN 02/26/20 02/26/20 Unknown hydrocortisone-pramoxine 1 applic [place] TID 02/26/20 02/26/20 02/25/20 [Proctofoam HC] lorazepam 1 mg PO HS PRN 02/26/20 02/26/20 02/24/20 mesalamine 1,000 mg [place] HS 02/26/20 02/26/20 02/24/20 multivitamin 1 tab PO DAILY 02/26/20 02/26/20 02/25/20 oxycodone-acetaminophen 1 tab PO Q8 PRN 02/26/20 02/26/20 Unknown ustekinumab [Stelara] 90 mg SUBCUT MONTHLY 02/26/20 02/26/20 Unknown Active Medications Generic Name Dose Route Start Last Admin Trade Name Freq PRN Reason Stop Dose Admin Ascorbic Acid 1,000 mg 02/26/20 09:00 02/29/20 07:53 Vitamin C PO 03/27/20 08:59 Not Given DAILY DUANE Citalopram Hydrobromide 10 mg 02/26/20 09:00 02/29/20 07:53 Celexa PO 03/27/20 08:59 10 mg DAILY DUANE Administration Hydromorphone HCl 0.5 mg 02/26/20 05:07 02/29/20 06:49 Dilaudid IV 03/11/20 05:06 0.5 mg Q3H PRN Administration Pain Miscellaneous 1 ea 02/26/20 08:00 02/29/20 07:53 Order Awaiting Action N/A 03/27/20 07:59 Not Given QS DUANE Multivitamins 1 tab 02/26/20 09:00 02/29/20 07:53 Multivitamin Tab PO 03/27/20 08:59 Not Given DAILY DUANE Ondansetron HCl 4 mg 02/26/20 05:07 02/29/20 06:43 Zofran IV 03/27/20 05:06 4 mg Q6H PRN Administration Nausea Oxycodone/Acetaminophen 1 - 2 tab 02/28/20 13:01 02/29/20 07:56 Percocet 5mg/325mg PO 03/13/20 13:00 1 tab Q6H PRN Administration Pain Prednisone 40 mg 02/28/20 13:15 02/29/20 07:54 Prednisone PO 03/29/20 13:14 40 mg DAILY DUANE Administration Past Medical History Medical History Celiac disease Crohns disease (Chronic) Exercise / Class Metabolic Activity II 4-5 Yardwork/Stairs/Walk up hill Past Family History Family History Grandfather (Paternal) Coronary heart disease Father Hypertension Past Surgical History Surgical History History of colonoscopy History of kidney surgery 1987 Hx of tonsillectomy 1996 S/P ear surgery ear tubes Past Anesthesia History No Hx of Anesthesia Complications and No Family Hx of Anesthesia Complications History of PONV No Hx of PONV and No Hx of Motion Sickness Social History Smoking Status: Never smoker Hx Alcohol Use: No Hx Substance Use: No Physical Exam Vital Signs Last Vital Signs Temp 98.6 F 02/29/20 07:49 Pulse 92 H 02/29/20 07:49 Resp 17 02/29/20 07:49 BP 119/76 02/29/20 07:49 Pulse Ox 98 02/29/20 07:49 ENMT Mouth: no dentition abnormality Thyromental Distance: > or= 3.5 Finger Breadths Mallampati Class: II Neck normal visual inspection Respiratory normal respiratory effort Auscultation: lungs clear to auscultation bilaterally Cardiovascular Rate/Rhythm: regular rate and regular rhythm Testing Laboratory Results 02/29/20 05:43 02/28/20 05:47 Urine Color Yellow 02/26/20 02:00 Urine Appearance Clear (Clear) 02/26/20 02:00 Urine pH 7.0 (4.5-7.5) 02/26/20 02:00 Ur Specific [place] 1.021 (1.000-1.030) 02/26/20 02:00 Urine Protein Negative (Negative) 02/26/20 02:00 Urine Glucose (UA) Negative (Negative) 02/26/20 02:00 Urine Ketones Trace (Negative) H 02/26/20 02:00 Urine Nitrite Negative (Negative) 02/26/20 02:00 Ur Leukocyte Esterase Negative (Negative) 02/26/20 02:00 Urine WBC (Auto) 1-5 /hpf (0-5) 02/26/20 02:00 Urine RBC (Auto) 10-30 /hpf (0-4) H 02/26/20 02:00 U Hyaline Cast (Auto) 1-5 /lpf (0-5) 02/26/20 02:00 U Epithel Cells (Auto) 20-30 /lpf (0-5) H 02/26/20 02:00 Urine Bacteria (Auto) 1+ (Negative) H 02/26/20 02:00 Blood Type A Negative 02/26/20 02:20 Antibody Screen NEGATIVE 02/26/20 02:20 02/26/20 02:00 Escherichia coli Shiga Toxins Test - Final Stool Stool Culture - Final No Salmonella isolated, No Shigella isolated, No Campylobacter jejuni isolated. 02/26/20 02:00 Urine Culture - Final Urine,Clean Catch Three types or organisms present, all moderate counts probable skin valarie. No further identifications or sensitivities to follow. 02/26/20 02:00 POC Ur Test NEG
--- NOTE | 2020-02-29 09:19 | Gastroenterology Progress Note ---
Date of Service February 29, 2020 Assessment & Plan (1) Crohns disease: 34 year old female with celiac, Crohn's on Stelara who presents for failed outpatient management of suspected IBD flare w/ up to 10 bloody bowel movements daily. On arrival to the ED repeat stool studies were sent and negative to date. She was started on IV methylpred and made NPO and notes improvement of her pain She is afebrile, non-toxic on exam w/ stable vital signs. Persistent abd pain, bleeding. NPO for Flex sig. Tap water enema ordered. Please see prior note for additional recommendations. Thank you for allowing us to participate in the care of this patient. Please call with any acute changes, questions or concerns. Please see addendum below with additional recommendation from my supervising physician. Admission and Anticipated Discharge Date Admission Date: February 26, 2020 Supervising Physician Co-Signing Physician Notes I saw and evaluated the patient. We are planning to do a flexible sigmoidoscopy to get a better look at her colon and help determine further course of care for her. Given her history of intermittent suppression and wondering about the possibility of CMV colitis. Subjective Persistent pain and bleeding NPO for flex sig Yet to take tap water enema Physical Exam Constitutional: no acute distress Results & Data ([facility]) Vital Signs (Past 12 Hours) Vital Signs Temp Pulse Resp BP Pulse Ox 02/29/20 07:49 37.0 C 92 H 17 119/76 98 02/28/20 23:00 37.0 C 82 20 117/78 98 (1) Crohns disease Digestive disease complication type: with rectal bleeding Gastrointestinal tract location: unspecified location Qualified Code(s): K50.911 - Crohn's disease, unspecified, with rectal bleeding
[2020-02-29] MEDS ORDERED: MIDAZOLAM HCL 1 MG/ML 2ML VIAL ONE ×2 (13:13→13:48)
[2020-02-29] MEDS ORDERED: ONDANSETRON INJ 2 MG/ML 2 ML VIAL ONE (13:59)
[2020-02-29] MEDS ORDERED: PROPOFOL IV EMULSION 10 MG/ML 20 ML VIAL IV ONE (14:02)
--- NOTE | 2020-02-29 14:05 | GI REPORT ---
Patient Name: Liliana Martinez Procedure Date: 02/29/2020 1:50 PM Date of : 1985 Admit Type: Inpatient Age: 34 Gender: Female Attending MD: Wally Ceja DO Procedure: Flexible Sigmoidoscopy Providers: Wally Ceja DO Referring MD: Evon Palafox Do, Ana María Tabor MD, Ashlee Suggs Indications: Hematochezia, Personal history of inflammatory bowel disease Medicines: Monitored Anesthesia Care Complications: No immediate complications. Estimated blood loss: Minimal. Estimated Blood Loss: Estimated blood loss was minimal. Procedure: Pre-Anesthesia Assessment: - Prior to the procedure, a History and Physical was performed, and patient medications, allergies and sensitivities were reviewed. The patient's tolerance of previous anesthesia was reviewed. - The risks and benefits of the procedure and the sedation options and risks were discussed with the patient. All questions were answered and informed consent was obtained. - Patient identification and proposed procedure were verified prior to the procedure by the physician, the nurse and the cordwood cutter helper. The procedure was verified in the procedure room. - Pre-procedure physical examination revealed no contraindications to sedation. - ASA Grade Assessment: III - A patient with severe systemic disease. - After reviewing the risks and benefits, the patient was deemed in satisfactory condition to undergo the procedure. - The anesthesia plan was to use monitored anesthesia care (MAC). - Immediately prior to administration of medications, the patient was re-assessed for adequacy to receive sedatives. - The heart rate, respiratory rate, oxygen saturations, blood pressure, adequacy of pulmonary ventilation, and response to care were monitored throughout the procedure. - The physical status of the patient was re-assessed after the procedure. After obtaining informed consent, the endoscope was passed under direct vision. Throughout the procedure, the patient's blood pressure, pulse, and oxygen saturations were monitored continuously. The scope was introduced through the anus and advanced to the sigmoid colon. The flexible sigmoidoscopy was accomplished without difficulty. The patient tolerated the procedure well. The quality of the bowel preparation was fair. Findings: The digital rectal exam findings include non-thrombosed external hemorrhoids. Pertinent negatives include normal sphincter tone. Inflammation characterized by congestion (edema), erythema, friability, pseudopolyps and serpentine ulcerations was found in a continuous and circumferential pattern from the rectum to the sigmoid colon. No sites were spared. This was severe. Biopsies were taken with a cold forceps for histology. The pathology specimen was placed into Bottle A. Estimated blood loss was minimal. Fluid aspiration was performed through the scope suction channel. Sample(s) were sent for Clostridium difficile. Estimated blood loss was minimal. Impression: - Preparation of the colon was fair. - Non-thrombosed external hemorrhoids found on digital rectal exam. - Left-sided colitis. Inflammation was found from the rectum to the sigmoid colon. This was severe. Biopsied. Fluid aspiration performed. Recommendation: - Return patient to [facility] for ongoing care. - Advance diet as tolerated today. - Await pathology results. - Use Rowasa enemas 1 per rectum BID. Wally Ceja D.O. Wally Ceja, 02/29/2020 2:04:57 PM This report has been signed electronically. Note Initiated On: 02/29/2020 1:50 PM Number of Addenda: 0 I attest to the content of the Intraoperative Record and orders documented therein, exceptions below {[id number]}
--- NOTE | 2020-02-29 14:20 | Anesthesiology Progress Note ---
Date of Service February 29, 2020 Anesthesia Post Procedure Vital Signs Vital Signs: Temp Pulse Resp BP Pulse Ox 02/29/20 14:14 98 H 17 98/62 L 93 02/29/20 13:59 101 H 17 91/62 L 99 02/29/20 13:37 98.4 F 95 H 16 134/86 98 02/29/20 07:49 98.6 F 92 H 17 119/76 98 02/28/20 23:00 98.6 F 82 20 117/78 98 02/28/20 18:43 97.3 F L 76 16 158/84 H 92 02/28/20 15:07 98.1 F 91 H 18 118/77 99 Pain Intensity Abdomen: Pain Intensity: 2 Transfer of Care Handoff Completed per policy Notes Mental Status: alert / awake / arousable and participated in evaluation Patient Amnestic to Procedure: Yes Nausea / Vomiting: adequately controlled Pain: adequately controlled Airway Patency, RR, SpO2: stable & adequate BP & HR: stable & adequate Hydration State: stable & adequate Anesthetic Complications: no major complications apparent and Pt Satisfied with anesthetic care
[2020-02-29] MEDS ORDERED: MESALAMINE 4 GM/60 ML ENEMA PR ONE (15:00)
[2020-02-29] MEDS: methylPREDNISolone 20 MG in SYRINGE 0 ML IV SCH (18:52)
[2020-02-29] MEDS ORDERED: IOVERSOL 100ml IV PRN (19:45)
--- NOTE | 2020-02-29 20:00 | CT Scan Report ---
CT abd pelvis oral and IV con CLINICAL HISTORY: ulcerative colitis, pain and rectal bleeding COMPARISON STUDY: February 13, 2015 TECHNIQUE: The patient was scanned following administration of dilute oral contrast, and in a dynamic helical fashion during intravenous and ministration of 94 cc of Optiray 320. A dose lowering techni que was utilized adhering to the principles of ALARA. CT DOSE: 464.24 mGy.cm FINDINGS: Lower chest: The heart is normal in size and configuration, without pericardial effusion. The lung ba ses and pleural spaces are clear. Liver: The contrast-enhanced liver is normal in size, contour, and attenuation. There is no intrahepa tic biliary ductal dilatation. The hepatic veins and portal veins are patent. Gallbladder: Unremarkable. Spleen: Normal in size and attenuation. Pancreas: Unremarkable. Adrenal glands: Unremarkable. Kidneys: No solid renal masses are visualized. There is an upper pole left renal scar. There are bila teral nonobstructing renal calculi. Bowel: There are no transition zones indicate bowel obstruction. There is contiguous colonic wall thi ckening extending from the rectum to the hepatic flexure. The findings are consistent with the clinic al diagnosis of ulcerative colitis. There is no evidence of acute diverticulitis. There is no evidenc e of acute appendicitis. Peritoneum: There is no intraperitoneal free air or abdominal ascites. Vasculature: The abdominal aorta is normal in course and caliber. Adenopathy: None. Pelvic viscera: There is a 3 cm right ovarian cyst/follicle. There is an indwelling tampon. Skeletal structures: There is a left ischial bone island. No destructive lesions are visualized. Ther e are equivocal subtle erosive changes within the SI joints. IMPRESSION: 1. Colonic wall thickening extending from the hepatic flexure to the rectum with mild surrounding mes enteric hypervascularity. The findings are consistent with the clinical history of ulcerative colitis . There is no evidence of abscess 2. No evidence of bowel obstruction. No evidence of free air 3. Bilateral nonobstructing renal calculi. ACT 112: Negative or not required by law. Electronically signed by: Tad Kahn M.D. 02/29/2020 7:58 PM
--- NOTE | 2020-02-29 20:41 | Hospitalist Progress Note ---
Date of Service February 29, 2020 Assessment & Plan (1) Crohns disease: Flex sig today with path pending. Severe inflammation noted. IV steroids for now until pain more controlled-using percocet for now which works. caution advised combining this with her Ativan. Was tolerating with intermittent post- prandial pain. Will restart diet this evening and cont to ADAT. GI started mesalamine enemas BID, and she is tolerating this. Cont bentyl PRN, Stelara, and will clarify the use of mesalamine at this time. (2) Acute blood loss anemia: 2/2 hematochezia. Severe disease with expected persistent blood loss overnight after biopsies today. Repeat CBC in am and consider additional transfusions. Of note, patient states that blood has given her IV site pain and she is concerned about this. Will consider moving IV site and transfusion pretreatments to avoid this. (3) Iron deficiency anemia: 2/2 acute blood loss semi-chronic (flare symptoms worsening since november 2019). She was given an infusion of IV iron this hospitalization. (4) Depression: stable, cont home citalopram. PRN Ativan per home regimen. (5) DVT prophylaxis: SCDs/ambulation Full Dispo-home when pain is controlled with oral medications and she is reliably tolerating PO. Evon Palafox DO [facility] Hospitalist Admission and Anticipated Discharge Date Admission Date: February 26, 2020 Subjective persistent hematochezia overnight x 3 episodes tap water enema this am and bleeding resolved flex sig this afternoon reveals severe inflammation in left descending colon to rectum per GI ok for iv steroids, patient agrees for now patient requests something to help her sleep. She expresses frustration at the continued need for hospitalization but understands why Hungry and after CT this evening will plan to start clear diet and ADAT. Review of Systems Review of Systems: All systems reviewed & are unremarkable except as noted in Subjective Physical Exam Physical Exam: CONSTITUTIONAL: WNWD, vitals as above, generally well- appearing EYES: normal conjunctivae, no scleral icterus ENT: external ear and nose normal, oropharynx clear, MMM RESPIRATORY: clear to auscultation bilaterally, no crackles, rales or wheezes, normal respiratory effort CARDIOVASCULAR: regular rate and rhythm, S1 and 2 heard without murmurs, gallops or rubs, no JVD, no peripheral edema GASTROINTESTINAL: normal bowel sounds, soft, nontender, nondistended, no guarding. MUSCULOSKELETAL: strength 5/5 throughout, head is normocephalic and atraumatic SKIN: warm and dry, no rashes NEUROLOGIC: CN 2-12 grossly intact, normal cognition, normal speech, no gross focal deficits. PSYCHIATRIC: alert cooperative and oriented to person, place and time. Results & Data Results & Data ([facility]) Vital Signs (Past 12 Hours) Vital Signs Temp Pulse Pulse Resp BP Pulse Ox 02/29/20 18:00 36.7 C 101 H 18 125/85 97 02/29/20 17:00 36.8 C 84 18 113/74 98 02/29/20 16:00 36.7 C 88 18 101/65 97 02/29/20 15:30 36.6 C 80 18 99/63 L 97 02/29/20 15:00 36.8 C 85 18 113/74 97 02/29/20 14:48 36.9 C 97 H 18 106/71 99 02/29/20 14:14 98 H 17 98/62 L 93 02/29/20 13:59 101 H 17 91/62 L 99 02/29/20 13:37 36.9 C 95 H 16 134/86 98 Laboratory Results Short CBC 02/29/20 Range/Units 05:43 WBC 13.63 H (4.8-10.8) K/uL Hgb 7.8 L (12.0-16.0) g/dL Hct 25.9 L (37-47) % Plt Count 452 H (130-400) K/uL Medications Administered Current Inpatient Medications Acetaminophen (Tylenol) 650 mg PO Q4H PRN PRN Reason: pain/fever Stop: 03/27/20 05:06 Ascorbic Acid (Vitamin C) 1,000 mg PO DAILY DUANE Stop: 03/27/20 08:59 Last Admin: 02/29/20 07:53 Dose: Not Given Documented by: Citalopram Hydrobromide (Celexa) 10 mg PO DAILY DUANE Stop: 03/27/20 08:59 Last Admin: 02/29/20 07:53 Dose: 10 mg Documented by: Dicyclomine HCl (Bentyl) 10 mg PO TID PRN PRN Reason: Pain Stop: 03/27/20 05:06 Hydromorphone HCl (Dilaudid) 0.5 mg IV Q3H PRN PRN Reason: Pain Stop: 03/11/20 05:06 Last Admin: 02/29/20 06:49 Dose: 0.5 mg Documented by: Lorazepam (Ativan) 0.5 mg in 1 mls @ 0.5 mls/min IV ONE ONE Stop: 02/29/20 22:01 Methylprednisolone 20 mg/ (Syringe) 0.32 mls @ 1.5 mls/min IV Q8H DUANE Stop: 03/30/20 17:59 Last Admin: 02/29/20 18:52 Dose: 1.5 mls/min Documented by: Ioversol (Optiray 320 100ml) 94 ml IV ONCE PRN PRN Reason: Interaction Checking Stop: 03/04/20 19:44 Last Admin: 02/29/20 19:45 Dose: 94 ml Documented by: Lorazepam (Ativan) 1 mg PO HS PRN PRN Reason: Anxiety Stop: 03/27/20 05:23 Mesalamine (Rowasa) 4 gm [place] BID DUANE Stop: 03/31/20 08:59 Miscellaneous (Order Awaiting Action) 1 ea N/A QS DUANE Stop: 03/27/20 07:59 Last Admin: 02/29/20 15:23 Dose: Not Given Documented by: Multivitamins (Multivitamin Tab) 1 tab PO DAILY DUANE Stop: 03/27/20 08:59 Last Admin: 02/29/20 07:53 Dose: Not Given Documented by: Ondansetron HCl (Zofran) 4 mg IV Q6H PRN PRN Reason: Nausea Stop: 03/27/20 05:06 Last Admin: 02/29/20 06:43 Dose: 4 mg Documented by: Oxycodone/Acetaminophen (Percocet 5mg/325mg) 1 - 2 tab PO Q6H PRN PRN Reason: Pain Stop: 03/13/20 13:00 Last Admin: 02/29/20 07:56 Dose: 1 tab Documented by: Prednisone (Prednisone) 40 mg PO DAILY DUANE Stop: 03/29/20 13:14 Last Admin: 02/29/20 07:54 Dose: 40 mg Documented by: (1) Crohns disease Digestive disease complication type: with rectal bleeding Gastrointestinal tract location: unspecified location Qualified Code(s): K50.911 - Crohn's disease, unspecified, with rectal bleeding
[2020-02-29] MEDS ORDERED: LORazepam 0.5 MG/1 ML VIAL IV ONE (22:00)
[2020-03-01] MEDS: methylPREDNISolone 20 MG in SYRINGE 0 ML IV SCH ×3 (02:40→17:30)
[2020-03-01] MEDS: OXYCODONE/ACETAMINOPHEN 5mg/325mg TAB PO PRN ×3 (03:05→16:27)
[2020-03-01] MEDS: ONDANSETRON INJ 2 MG/ML 2 ML VIAL IV PRN (03:06)
[2020-03-01 07:02] LABS: Hematocrit (blood only) 26.6 % (37-47); Hemoglobin 8.1 g/dL (12.0-16.0); Mean Corpuscular Hemoglobin 26.6 pg (25-34); Mean Corpuscular Hgb Conc 30.5 g/dL (32-36); Mean Corpuscular Volume 87.5 fL (80-100); Mean Platelet Volume 8.5 fL (7.4-10.4); Nucleated RBC # (auto) 0.19 K/uL (0-0); Nucleated RBC % (auto) 1.7 %; Platelet Count 470 K/uL (130-400); RDW Standard Deviation 48.1 fL (36.4-46.3); Red Blood Count 3.04 M/uL (4.2-5.4); White Blood Count 10.92 K/uL (4.8-10.8)
[2020-03-01] MEDS: CITALOPRAM 20 MG TAB PO SCH (07:33)
[2020-03-01 07:34] LABS: BUN Creatinine Ratio 14.1 (10-20); Calcium 8.8 mg/dl (8.5-10.1); Creatinine Clr Calc Pharmacy 115.3 ml/min; Est GFR (African American) 125.4; Est GFR (Non-African American) 108.2; Magnesium 2.1 mg/dl (1.8-2.4); Potassium 4.3 mmol/L (3.5-5.1)
[2020-03-01] MEDS: MULTIVITAMIN TAB PO SCH (07:34)
[2020-03-01] MEDS: ASCORBIC ACID 500 MG TAB PO SCH (07:34)
[2020-03-01 07:35] LABS: Phosphorus 4.6 mg/dl (2.5-4.9)
[2020-03-01] MEDS ORDERED: MESALAMINE 4 GM/60 ML ENEMA PR SCH (09:00)
--- NOTE | 2020-03-01 09:18 | Gastroenterology Progress Note ---
Date of Service March 01, 2020 Assessment & Plan (1) Crohns disease: 34 year old female with celiac, Crohn's on Stelara who presents for failed outpatient management of suspected IBD flare w/ up to 10 bloody bowel movements daily. On arrival to the ED repeat stool studies were sent and negative to date. She was started on IV methylpred and made NPO and notes improvement of her pain She is afebrile, non-toxic on exam w/ stable vital signs. Persistent abd pain, bleeding. Flex sig with evidence of active IBD, biospies pending, CTAP reviewed. Feeling better. Continue IV steroids today, Then taper per previous recommendations Low residue diet as tolerated Rowasa enema twice daily Bentyl as needed Discussed for any slow to resolve symptoms requiring admission a transfer could be suggests for IBD specialist evaluation of colorectal surgery evaluation, she verbalized understanding and agreed No GI contraindication to discharge if she is tolerating PO, not requiring IV analgesia and her frequency remains improved. Dr Benjamin [place] [facility] [place] this weekend. Thank you for allowing us to participate in the care of this patient. Please call with any acute changes, questions or concerns. Please see addendum below with additional recommendation from my supervising physician. Admission and Anticipated Discharge Date Admission Date: February 26, 2020 Supervising Physician Co-Signing Physician Notes I saw and evaluated the patient she notes she no longer has hematochezia, givne this would suggest advancing diet as tolerated, prednisone as above and use of rowasa enema 2 times daily for 1 week then 1 time daily therafter. She will continue to f/u with as and OP. Please call with any questions or concerns. Subjective Feeling well S/P flex sig with repeat biopsies Pending CTAP reviewed Started rowasa enema Less pain this AM Less liquid stool No bloody BM since enema use Less narcotics needed overnight Wants to go home Review of Systems Constitutional: no fever and no chills Respiratory: no cough Cardiovascular: no chest pain Gastrointestinal: + abdominal pain and + diarrhea/loose stools; no blood in stools and no melena Physical Exam Constitutional: well nourished; no acute distress and not ill appearing Gastrointestinal (Abdomen): Percussion/Palpation: + abdomen tender and abdomen soft; no guarding and abdomen not rigid Results & Data ([facility]) Vital Signs (Past 12 Hours) Vital Signs Temp Pulse Resp BP Pulse Ox 03/01/20 07:38 36.7 C 93 H 16 118/72 98 02/29/20 23:49 37.0 C 69 18 116/74 98 (1) Crohns disease Digestive disease complication type: with rectal bleeding Gastrointestinal tract location: unspecified location Qualified Code(s): K50.911 - Crohn's disease, unspecified, with rectal bleeding
--- NOTE | 2020-03-01 17:45 | Discharge Summary ---
Date of Service March 01, 2020 Admission HPI Per Admitting Provider This 34-year-old female with past medical history significant for Crohn's disease, iron deficiency anemia, generalized anxiety disorder, presents with Crohn's flare. The patient is having this ongoing flare since November when she was started on prednisone course and she finished prednisone tapering about 1 week ago. The patient had a colonoscopy done in the first week of January, which showed severe colitis in the rectal region. She is currently on Stelara, used to get every 8 weeks, now it was changed to every 4 weeks. She follows with Zoran KAUFFMAN and also with Josefina, and Josefina KAUFFMAN put her on Proctofoam but it is not helping much and last night she has 5 times bowel movement with bloody bowel movements and there was a lot of blood in it and her abdominal pain getting worse, so she came to the ER requiring IV pain medications. The patient complains of nausea. Have some chills but no fever, no vomiting. Appetite is not that great since last few days, she thinks she lost about 4 pounds. Denies any headache, no blurred vision, no earache, no runny nose, no sore throat, no cough. No difficulty swallowing. No shortness of breath, no chest pain. No rash. Otherwise, ambulates okay. She just had IV iron recently and also she had a dose of Stelara on last . Admission Exam Per Admitting Provider PHYSICAL EXAMINATION: GENERAL: The patient is of moderate built, not in acute distress. VITAL SIGNS: Temperature 36.9, pulse 105, respiratory rate 16, blood pressure 123/75, oxygen 100% on room air. HEENT: Pupils equal, round, reactive to light. Oral mucosa dry. NECK: No JVD, no neck masses seen. CARDIOVASCULAR: S1, S2 heard, regular rate and rhythm, no murmur, no gallop. RESPIRATORY SYSTEM: Normal AP diameter. No accessory muscle use. No wheezing, no crackles. ABDOMEN: Soft, bowel sounds sluggish. Diffuse tenderness, no guarding, no rigidity. No distention. CENTRAL NERVOUS SYSTEM: Cranial nerves II-XII grossly intact, nonfocal. EXTREMITIES: No edema, no erythema. Principal Diagnosis Chron's disease flare Discharge Exam CONSTITUTIONAL: WNWD, vitals as above, generally well-appearing EYES: normal conjunctivae, no scleral icterus ENT: external ear and nose normal, oropharynx clear, MMM RESPIRATORY: clear to auscultation bilaterally, no crackles, rales or wheezes, normal respiratory effort CARDIOVASCULAR: regular rate and rhythm, S1 and 2 heard without murmurs, gallops or rubs, no JVD, no peripheral edema GASTROINTESTINAL: normal bowel sounds, soft, nontender, nondistended, no guarding. MUSCULOSKELETAL: strength 5/5 throughout, head is normocephalic and atraumatic SKIN: warm and dry, no rashes NEUROLOGIC: CN 2-12 grossly intact, normal cognition, normal speech, no gross focal deficits. PSYCHIATRIC: alert cooperative and oriented to person, place and time. Discharge Data Allergies Allergy/AdvReac Type Severity Reaction Status Date / Time No Known Allergies Allergy Mild Verified 09/12/19 14:46 Consultations 02/26/20 03:41 ED Decision to Admit Stat 02/26/20 08:00 Consult Gastroenterology Routine Procedures Performed Operation Date: 02/29/20 16:40 Actual Procedures p Flexible Sigmoidoscopy Biopsy - Wally Ceja Ordered Studies 02/29/20 16:28 CT abd pelvis oral and IV con Routine Hospital Course (1) Crohns disease: (2) Acute blood loss anemia: (3) Iron deficiency anemia: 34-year-old female with Crohn's disease on Stelara was admitted to the hospital for failed outpatient management of suspected IBD flare with up to 10 bloody bowel movements daily. Stool studies including cultures were negative and she was started on IV methylprednisolone and made n.p.o. initially. She was admitted to the hospitalist service with gastroenterology consulted. The next day she was able to advance to a gluten-free clear liquid diet and continued to do well on IV steroids. Narcotic analgesia was needed to help with pain. She continued to do well and her diet was advanced, however, the gastro enterologist on service discussed her case with her outpatient gastroenterology provider who recommended an inpatient flexible sigmoidoscopy. A tap water enema was performed for prep and this sigmoidoscopy was performed on 02/28. Findings included nonthrombosed external hemorrhoids, severe left-sided colitis with inflammation found in the rectum to the sigmoid colon. This was biopsy and a fluid aspiration was performed. Pathology was pending at time of discharge. She was transitioned to oral prednisone for a prolonged taper. After the sigmoidoscopy she was started on mesalamine enemas. Her diet was advanced and at time of discharge she was tolerating p.o. and was not requiring IV analgesia to treat her pain. Close primary care follow-up and gastroenterology follow-up is recommended. During her hospitalization she did require 1 unit of irradiated leukocyte reduced red blood cells given on 02/25 to treat acute blood loss anemia. Outpatient H/H should be considered by primary care doctor in the next couple of weeks. Total Time Total Time Spent Total Time Spent (In Minutes): 60 Total Time Includes: Examination of the Patient, Discharge Planning, Medication Reconciliation and Communication With Other Providers Discharge Plan Discharge Items Patient Disposition: Home - Self-Care Reason For Visit: [place] Discharge Diagnosis: Chron's disease flare Condition on Discharge: Good Activity: Resume your previous activity Non-emergency contact: Primary Care Provider Call non-emergency contact if: you have any medication questions, your symptoms worsen, your pain is not controlled, your pain is worsening, your pain is unusual for you, your pain is concerning for you and you have a fever Follow-up/Referrals: Ashlee Suggs PA-C [Primary Care Provider] - 03/04/20 10:00 am (03/04/2020 10:00 AM Provider Ashlee Suggs PA-C Department [facility] ) Diet: Gluten Free Addtl Attending Provider Instructions: Please tale all medications as instructed on discharge list below. As discussed, you will be given mesalamine enemas to take twice daily for one week, then once daily until further notice from Dr. Clemons. You are being put on a prolonged steroid taper starting tomorrow, 03/02. It goes: Prednisone 40 daily x 2 weeks, then decrease by 5mg every week until gone. You are being prescribed the first two weeks of this taper now, and will need to have the remainder sent in from your primary care provider (PCP). When dosing Percocet and Tylenol, it is important to remember that Tylenol is a part of Percocet, and you shouldn't have more than 3000mg of Tylenol (acetaminophen) in any 24 hour period. It is recommended that you follow-up with your PCP at the time and date above to ensure you are still doing well after hospital discharge. It was a pleasure taking care of you! Please call if you have any questions or problems. You can reach a [facility] hospitalist on duty at [facility] 24 hours a day by calling [phone]. Take care of yourself. Evon Palafox DO [facility] Pending Studies at Discharge: No Stand-Alone Forms: My [facility], Work/School Release (Inpt), Smoking Cessation Medications and DC Order Prescriptions: New mesalamine 4 gram/60 mL Enema 4 g ME UD Qty: 1680 RF: 0 prednisone 20 mg Tablet 40 mg PO DAILY Qty: 14 RF: 0 Continued levonorgestrel-ethinyl estrad [Lillow (28)] 0.15-0.03 mg tablet 1 tab PO HS RF: 0 citalopram 10 mg tablet 10 mg PO DAILY RF: 0 lorazepam 1 mg tablet 1 mg PO HS PRN (Reason: Anxiety) RF: 0 Stelara 90 mg/mL syringe 90 mg SUBCUT MONTHLY RF: 0 Proctofoam HC 1-1 % foam 1 applic ME TID RF: 0 dicyclomine 10 mg capsule 10 mg PO TID PRN (Reason: Pain) RF: 0 multivitamin Tablet 1 tab PO DAILY RF: 0 ascorbic acid (vitamin C) [Vitamin C] 1,000 mg Tablet Extended Release 1,000 mg PO DAILY RF: 0 oxycodone-acetaminophen 5-325 mg tablet 1 tab PO Q8 PRN (Reason: pain) Qty: 30 RF: 0 Discharge Orders: Discharge Order (Routine); Ordered 03/01/20 Ordered By: Evon Palafox Admission Data Admit Date/Time: 02/26/20 03:50 Attending Provider: Evon Palafox Admit Provider: Mando Larose Primary Care Provider: Ashlee Suggs Other Providers: Mando Larose ; Ana María Tabor Other Interventions: Discharge Summary Assessment (RN) Last Done: 03/01/20 17:53 DC Date/Time DO NOT enter until pt leaves facility: 03/01/20 18:15
== END 2020-03-01 18:15 | disposition home or self-care (01) | DRG 386 ==
LOC: ED 00:47 → 2N 03:50 → SUATTDRO 03:50 → 2N 04:46